=== PATIENT | male | born 1940 | race Caucasian/White ===

== ENCOUNTER 2019-01-27 17:03 | Emergency (ER) | payer MEDICARE ==
--- OUTSIDE RECORDS SUMMARY | 2019-01-27 17:18 | XMS REPORT | Continuity of Care Document ---
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 Dieudonne Still DO Primary Care Physician Unavailable Payers Date Identification Numbers Payment Provider Subscriber Policy Number: [id number] [employer] Jack Gonzalez PayID: [id number] [address] [address] [place] [address] Advance Directives Description No Information Available Problems Date Description Provider Status Onset: 07/13/2011 Atrial fibrillation Aaron Farnce MD, PhD Active Onset: 07/13/2011 Coronary arteriosclerosis Aaron France MD, PhD Active Onset: 07/13/2011 Hyperlipidemia Aaron France MD, PhD Active Onset: 07/13/2011 Benign essential hypertension Aaron France MD, PhD Active Onset: 06/28/2012 Localized, primary osteoarthritis Robbie Ibarra MD Active of the shoulder region Onset: 03/01/2014 Sleep dysfunction with sleep stage [place] High ANP Active disturbance Onset: 03/01/2014 Aortic valve disorder [place] ANP Active Onset: 12/04/2014 Localized, primary osteoarthritis Ifeanyi Lopez M.D. 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 Active replacement surgery Onset: 05/04/2017 Mixed hyperlipidemia Olimpia Muñoz, Active MSN, ACDS BLOCK 1 OPERATOR Onset: 10/30/2017 Periprosthetic fracture Deena Campbell PA Active Onset: 10/30/2017 Closed fracture of upper end of Deena Campbell PA Active tibia Onset: 10/30/2017 Other cause of strike by thrown, Deena Campbell PA Active projected or falling object, initial encounter Onset: 11/09/2017 Knee pain Ifeanyi Lopez M.D. Active Family History Date Family Member(s) Observation Comments General Heart Disease General Stroke Father due to Stroke () Mother due to Aneurysm () Mother due to Congestive Heart Failure () Social History Type Date Description Comments Sex Unknown Lives With Alone Diet Patient is on a low sodium diet Occupation [employer] Right-handed ADL's/IADL's Independent with all ADL's Tobacco Use Start: Unknown Never Smoked Cigarettes Tobacco Use Start: Unknown Never Smoked Cigars Tobacco Use Start: Unknown Never Smoked A Pipe Smoking Status Reviewed: 05/04/17 Never Smoked A Pipe Smokeless Tobacco Never Used Smokeless Tobacco ETOH Use Rarely consumes alcohol Recreational Drug Use Denies Drug Use Allergies, Adverse Reactions, Alerts Date Description Reaction Status Severity Comments Ramipril rash Active 01/18/2016 Ferrous Sulfate Active 01/18/2016 Ferrous Gluconate Active 06/28/2011 NKDA Inactive Medications Medication Date Status Form Strength Qnty SIG Indications Ordering Provider Simvastatin Active Tablets 80mg 90tab 1 by E78.4 Pollo, 7 s mouth MD Anshul every day at bedtime Aspirin Active Tablets 81mg 1 by Pollo, 6 mouth MD Anshul every day Losartan Active Tablets 25mg 90tab 1 by I10 Edilma, Potassium 3 s mouth Aaron Martinez, every MD, PhD day Metoprolol Active Tablets 25mg 180ta Take One Edilma, Tartrate 2 bs Tablet Aaron Martinez, By Mouth , PhD Twice A Day Sertraline HCL Active Tablets 25mg 60tab 1 by Unknown 0 s mouth every day Multi Vitamin 00/00/000 Active Tablets 1 po Unknown Daily 0 daily Spiriva Active Capsules 18mcg 1 puff Unknown Handihaler 0 once daily (pt uses irregula rly) Plavix Hx Tablets 75mg 90tab 1 by I25.10 Pollo, 5 - s mouth MD Anshul every 6 day Ranexa Hx Tablets ER 500mg 60tab 1 by 786.05 Pollo, 5 - 12HR s mouth MD Anshul Unknown twice a day Simvastatin Hx Tablets 40mg 90tab 1 po qd 272.4 Muñoz, 2 - s Olimpia Jorge 7 , MSN, ACDS BLOCK 1 OPERATOR Metoprolol Hx Tablets ER 25mg 90tab every France, Succinate ER 1 - 24HR s day Aaron Martinez, , PhD 2 Acetaminophen/H Hx Tablets 5-500mg 30tab 1 po q 6 786.59 Edilma ydrocodone 1 - s hours Aaron L., Unknown prn , PhD Amiodarone HCL Hx Tablets 200mg 90tab 1 po qd 427.31 Edilma 1 - s Aaron L., Unknown , PhD Pradaxa Hx Capsules 150mg 60cap 1 po bid 427.31 Edilma 1 - s Aaron L., Unknown , PhD Lasix Hx Tablets 20mg 60tab 1 tab po Edilma, 1 - s bid call Aaron L., Unknown with , PhD weight gain of 3 lbs Klor-Con M20 Hx Tablets ER 20Meq 30tab 1 po bid Edilma 1 - s Aaron L., Unknown , PhD Altace Hx Capsules 2.5mg 90cap 1 po qd Edilma 0 - s Aaron L., Unknown , PhD Amiodarone HCL Hx Tablets 400mg 180ta 1 po qd Unknown 0 - bs 1 Vitamin C Hx Tablets 500mg 1 po qd Unknown 0 - Unknown Aspirin DR Hx Tablets DR 81mg 1 po qd Unknown 0 - Unknown Docusate Sodium Hx Capsules 100mg 1 po qd Unknown 0 - Unknown Ferrous Hx Tablets 324(38Fe) 30tab 1 po qd Edilma Gluconate 0 - mg s Aaron L., Unknown , PhD Folic Acid Hx Tablets 1mg 90tab 1 po qd Unknown 0 - s Unknown Hydrocodone/Bertin Hx Tablets 5-325mg 60tab 1 tab po Unknown taminophen 0 - s q4-6h Unknown prn Lovastatin Hx Tablets 20mg 90tab 1 po qd 272.4 Edilma 0 - s Aaron LSoto, , PhD 2 Metoprolol Hx Tablets 25mg 60tab 1 po bid Unknown Tartrate 0 - s 1 Multivitamins Hx Tablets 1 po qd Unknown 0 - Unknown Pantoprazole Hx Tablets DR 40mg 1 po qd Unknown Sodium 0 - Unknown Fluoxetine Hx Capsules 20mg 1 po qd Unknown 0 - Unknown Vitamin C Hx Chewtabs 500mg qd Unknown 0 - Unknown Ramipril Hx Capsules 2.5mg 1 po qd Unknown 0 - Unknown Aspirin Hx Tablets 325mg 1 po qd Unknown 0 - 6 B-12 Hx Tablets 1000mcg po qd Unknown 0 - Sub Unknown Metoprolol Hx Tablets ER 25mg 1 po qd Unknown Succinate ER 0 - 24HR Unknown Centrum Silver Hx Tablets 1 po qd Unknown 0 - Unknown Tylenol Hx Tablets 325mg 2 tabs Unknown 0 - tid 5 Vitamin B 12 Hx Lozenges 300mg 1 by Unknown 0 - mouth every 6 day Spiriva Hx 1 p Unknown Handihaler 0 - daily Unknown Medications Administered in Office Medication Date Status Form Strength Qnty SIG Indications Ordering Provider Methylprednisolone 01/[address], acetate Tristian (Depomedrol) 80mg D., D.O. injection Depomedrol 07/23 Administered Injection [place], 40mg/1cc Cullen Villeda (methylprednisolon , FACS e acetate) Depomedrol 07/[address], 40mg/ Tristian (Bhaskar Saenz.OSoto wayne) Immunizations Description No Information Available Vital Signs Date Vital Result Comment 01/07/2019 2:48pm BP Systolic Sitting Left Arm 136 mmHg BP Diastolic Sitting Left Arm 62 mmHg Heart Rate 62 /min Respiratory Rate 18 /min Height 70 inches 5'10" Weight 195.00 lb BMI (Body Mass Index) 28.0 kg/m2 BSA (Body Surface Area) 2.06 m2 [place] body weight in kilograms 75 kg O2 % BldC Oximetry 97 % 06/22/2018 8:29am BP Systolic Sitting Left Arm 134 mmHg BP Diastolic Sitting Left Arm 76 mmHg Heart Rate 69 /min Respiratory Rate 16 /min Height 70 inches 5'10" Weight 190.00 lb BMI (Body Mass Index) 27.3 kg/m2 BSA (Body Surface Area) 2.04 m2 [place] body weight in kilograms 75 kg O2 % BldC Oximetry 97 % room air 12/21/2017 10:11am BP Systolic Sitting Left Arm 139 mmHg BP Diastolic Sitting Left Arm 81 mmHg Heart Rate 72 /min Respiratory Rate 20 /min Height 70 inches 5'10" Weight 196.50 lb BMI (Body Mass Index) 28.2 kg/m2 BSA (Body Surface Area) 2.07 m2 [place] body weight in kilograms 75 kg O2 % BldC Oximetry 96 % Ra Pain Level 0 12/14/2017 10:29am BP Systolic Sitting Right Arm 142 mmHg BP Diastolic Sitting Right Arm 72 mmHg Heart Rate 72 /min Respiratory Rate 16 /min Height 70 inches 5'10" Weight 197.00 lb BMI (Body Mass Index) 28.3 kg/m2 BSA (Body Surface Area) 2.07 m2 [place] body weight in kilograms 75 kg 12/07/2017 10:35am BP Systolic Sitting Left Arm 134 mmHg BP Diastolic Sitting Left Arm 80 mmHg Body Temperature 97.4 F Heart Rate 67 /min Respiratory Rate 19 /min Height 70 inches 5'10" Weight 198.00 lb BMI (Body Mass Index) 28.4 kg/m2 BSA (Body Surface Area) 2.08 m2 [place] body weight in kilograms 75 kg 11/07/2017 3:18pm BP Systolic 122 mmHg BP Diastolic 68 mmHg Body Temperature 98.0 F Heart Rate 77 /min Respiratory Rate 14 /min Height 70 inches 5'10" Weight 183.00 lb BMI (Body Mass Index) 26.3 kg/m2 BSA (Body Surface Area) 2.01 m2 [place] body weight in kilograms 75 kg 10/30/2017 11:35am BP Systolic Sitting Right Arm 130 mmHg BP Diastolic Sitting Right Arm 71 mmHg Body Temperature 98.4 F Heart Rate 78 /min Respiratory Rate 20 /min Height 70 inches 5'10" [place] body weight in kilograms 75 kg 05/04/2017 8:40am BP Systolic Sitting Left Arm 130 mmHg BP Diastolic Sitting Left Arm 76 mmHg Heart Rate 62 /min Respiratory Rate 18 /min Height 70 inches 5'10" Weight 191.00 lb BMI (Body Mass Index) 27.4 kg/m2 BSA (Body Surface Area) 2.05 m2 [place] body weight in kilograms 75 kg 10/25/2016 3:38pm BP Systolic Sitting Right Arm 134 mmHg BP Diastolic Sitting Right Arm 88 mmHg Heart Rate 71 /min Respiratory Rate 16 /min Weight 196.00 lb 07/19/2016 8:38am BP Systolic Sitting Left Arm 144 mmHg BP Diastolic Sitting Left Arm 80 mmHg Heart Rate 69 /min Height 67 inches 5'7" Weight 195.00 lb BMI (Body Mass Index) 30.5 kg/m2 BSA (Body Surface Area) 2.00 m2 [place] body weight in kilograms 67 kg 11/03/2015 9:27am BP Systolic 132 mmHg BP Diastolic 79 mmHg Heart Rate 72 /min Height 70 inches 5'10" Weight 191.00 lb BMI (Body Mass Index) 27.4 kg/m2 BSA (Body Surface Area) 2.05 m2 O2 % BldC Oximetry 98 % 10/20/2015 9:56am BP Systolic Sitting Left Arm 138 mmHg BP Diastolic Sitting Left Arm 74 mmHg Heart Rate 72 /min Height 70 inches 5'10" Weight 192.00 lb BMI (Body Mass Index) 27.5 kg/m2 BSA (Body Surface Area) 2.05 m2 07/27/2015 8:50am BP Systolic 119 mmHg BP Diastolic 71 mmHg Heart Rate 60 /min Weight 190.00 lb O2 % BldC Oximetry 98 % 04/15/2015 2:37pm BP Systolic Sitting Right Arm 130 mmHg BP Diastolic Sitting Right Arm 68 mmHg Heart Rate 60 /min Respiratory Rate 16 /min Height 68.5 inches 5'8.50" Weight 193.00 lb BMI (Body Mass Index) 28.9 kg/m2 BSA (Body Surface Area) 2.02 m2 01/13/2015 11:10am BP Systolic Sitting Right Arm 122 mmHg BP Diastolic Sitting Right Arm 66 mmHg Heart Rate 58 /min Respiratory Rate 22 /min Height 68.5 inches 5'8.50" Weight 193.00 lb BMI (Body Mass Index) 28.9 kg/m2 BSA (Body Surface Area) 2.02 m2 12/19/2014 11:15am Heart Rate 68 /min Respiratory Rate 16 /min Height 68.5 inches 5'8.50" Weight 190.00 lb BMI (Body Mass Index) 28.5 kg/m2 BSA (Body Surface Area) 2.01 m2 12/01/2014 11:20am BP Systolic Sitting Right Arm 120 mmHg BP Diastolic Sitting Right Arm 76 mmHg Heart Rate 60 /min Respiratory Rate 16 /min Height 68.5 inches 5'8.50" Weight 192.00 lb BMI (Body Mass Index) 28.8 kg/m2 BSA (Body Surface Area) 2.02 m2 09/11/2014 9:20am BP Systolic Sitting Right Arm 120 mmHg BP Diastolic Sitting Right Arm 62 mmHg Heart Rate 60 /min Respiratory Rate 18 /min Height 68.5 inches 5'8.50" Weight 189.00 lb BMI (Body Mass Index) 28.3 kg/m2 BSA (Body Surface Area) 2.01 m2 02/27/2014 10:46am BP Systolic Sitting Left Arm 112 mmHg BP Diastolic Sitting Left Arm 64 mmHg Heart Rate 66 /min Respiratory Rate 16 /min Height 68.5 inches 5'8.50" Weight 181.00 lb BMI (Body Mass Index) 27.1 kg/m2 BSA (Body Surface Area) 1.97 m2 08/26/2013 9:51am BP Systolic Sitting Left Arm 136 mmHg BP Diastolic Sitting Left Arm 72 mmHg Heart Rate 72 /min Respiratory Rate 16 /min Height 68.5 inches 5'8.50" Weight 185.00 lb BMI (Body Mass Index) 27.7 kg/m2 BSA (Body Surface Area) 1.99 m2 07/23/2013 11:34am Height 68.5 inches 5'8.50" Weight 186.00 lb BMI (Body Mass Index) 27.9 kg/m2 BSA (Body Surface Area) 1.99 m2 06/27/2013 9:17am BP Systolic Sitting Left Arm 134 mmHg BP Diastolic Sitting Left Arm 68 mmHg Heart Rate 56 /min Respiratory Rate 16 /min Height 189 inches 15'9" Weight 188.00 lb BMI (Body Mass Index) 3.7 kg/m2 BSA (Body Surface Area) 4.18 m2 05/23/2013 9:56am BP Systolic Sitting Right Arm 146 mmHg BP Diastolic Sitting Right Arm 82 mmHg Heart Rate 54 /min Respiratory Rate 16 /min Height 189 inches 15'9" Weight 190.00 lb BMI (Body Mass Index) 3.7 kg/m2 BSA (Body Surface Area) 4.20 m2 11/22/2012 1:13pm BP Systolic Sitting Left Arm 124 mmHg BP Diastolic Sitting Left Arm 70 mmHg Heart Rate 66 /min Respiratory Rate 16 /min Height 189 inches 15'9" Weight 189.00 lb BMI (Body Mass Index) 3.7 kg/m2 BSA (Body Surface Area) 4.19 m2 05/22/2012 11:21am BP Systolic Sitting Right Arm 120 mmHg BP Diastolic Sitting Right Arm 72 mmHg Heart Rate 56 /min Regular Respiratory Rate 12 /min Height 70 inches 5'10" Weight 183.00 lb BMI (Body Mass Index) 26.3 kg/m2 03/22/2012 1:25pm BP Systolic Sitting Right Arm 134 mmHg BP Diastolic Sitting Right Arm 90 mmHg Heart Rate 68 /min regular Respiratory Rate 16 /min Height 70 inches 5'10" Weight 180.00 lb BMI (Body Mass Index) 25.8 kg/m2 01/20/2012 3:27pm BP Systolic Sitting Left Arm 126 mmHg BP Diastolic Sitting Left Arm 82 mmHg Heart Rate 64 /min Regular Respiratory Rate 16 /min Height 70 inches 5'10" Weight 183.00 lb BMI (Body Mass Index) 26.3 kg/m2 11/17/2011 3:13pm BP Systolic Sitting Right Arm 134 mmHg BP Diastolic Sitting Right Arm 82 mmHg Heart Rate 72 /min regular Respiratory Rate 16 /min Height 70 inches 5'10" Weight 190.00 lb BMI (Body Mass Index) 27.3 kg/m2 10/13/2011 10:29am BP Systolic Sitting Right Arm 142 mmHg BP Diastolic Sitting Right Arm 86 mmHg Heart Rate 76 /min Regular Respiratory Rate 18 /min Height 70 inches 5'10" Weight 195.00 lb BMI (Body Mass Index) 28.0 kg/m2 07/13/2011 10:05am BP Systolic Sitting Right Arm 100 mmHg BP Diastolic Sitting Right Arm 66 mmHg Heart Rate 68 /min regular Respiratory Rate 20 /min Height 70 inches 5'10" Weight 184.00 lb BMI (Body Mass Index) 26.4 kg/m2 06/28/2011 2:56pm BP Systolic Sitting Right Arm 126 mmHg BP Diastolic Sitting Right Arm 74 mmHg BP Systolic Sitting Left Arm 124 mmHg BP Diastolic Sitting Left Arm 70 mmHg Heart Rate 68 /min Respiratory Rate 18 /min Height 70 inches 5'10" Weight 183.00 lb BMI (Body Mass Index) 26.3 kg/m2 Results Test Date Facility Test Result H/L Range Note Laboratory test finding 08/01/2018 N2N/CCD Import Alt 19 U/L 3-42 Ast 21 U/L 8-42 Chol/ HDL Ratio 3.3 ratio Low 4-6.7 Cholesterol 149 mg/dL 50-199 HDL 45 mg/dL 29-71 LDL (Calc) 89 mg/dL 20-99 TSH 2.38 uIU/mL 0.35-4.94 Triglycerides 78 mg/dL 30-200 VLDL 16 mg/dL 2-29 Basic (BMP) 08/01/2018 N2N/CCD Import Nikki Egfr >60 Anion Gap 8 mmol/L 5-15 BUN 18 mg/dL 6-26 Calcium 9.2 mg/dL 8.5-10.2 Carbon Dioxide 28 mmol/L 24-34 Chloride# 105 mmol/L 97-110 Creatinine 1.0 mg/dL 0.5-1.4 Glucose 102 mg/dL 70-105 Non Nikki Egfr >60 Potassium 4.4 mmol/L 3.5-5.2 Sodium 141 mmol/L 135-146 CBC with Auto Diff-fcmg 08/01/2018 N2N/CCD Import Abs Basophils 0.0 K/uL 0-0.3 Abs Eosinophils 0.5 K/uL 0-0.5 Abs Lymphocytes 2.1 K/uL 0.8-5.5 Abs Monocytes 0.6 K/uL 0.1-1 Abs Neutrophils 3.3 K/uL 2.1-8 Basophil 0.6 % 0-4 Eosinophil 7.7 % High 0-5 Hematocrit 46.6 % 41-53 Hemoglobin 15.8 gm/dL 13.5-18 Lymphocyte 32.2 % 16-52 MCH 31.8 pg 27-32 MCHC 33.9 g/dL 32-36 MCV 93.8 fL 80-97 MPV 8.8 FL 7.1-10.7 Monocyte 9.5 % 2-10 Neutrophil 50.0 % 35-75 PLT Count 242 K/ul 140-400 RBC 4.97 M/uL 4.6-6.1 RDW 13.6 % 11.5-14.5 WBC 6.7 K/uL 4.1-11 Liver Function Tests 12/08/2016 [facility] Total Protein 6.8 g/dL N 6.4-8.2 1 [address] [place] [address] [phone] Albumin 3.5 g/dL N 3.4-5.0 Globulin 3.3 g/dL N 1.9-4.3 Alb/Glob 1.1 ratio Bilirubin,Total 0.7 mg/dL N 0.2-1.0 Bilirubin,Direct 0.1 mg/dL N 0.0-0.2 Bilirubin,Indirect 0.6 mg/dL N 0.0-0.9 Sgot/Ast 24 U/L N 15-37 SGPT/Alt 31 U/L N 12-78 Alkaline Phosphatase 83 U/L N 45-117 LDL Cholesterol Profile 12/08/2016 [facility] Cholesterol 152 mg/dL <200 2 [address] [place] [address] [phone] Triglycerides 89 mg/dL <150 3 HDL Cholesterol 47 mg/dL >40 4 LDL-Cholesterol 87 mg/dL < 100 5 Basic Metabolic Panel 11/26/2015 [facility] Glucose 128 mg/dL High 74-106 [address] [place] [address] [phone] BUN 9 mg/dL 7-18 Creatinine 0.9 mg/dL 0.6-1.3 Glom Filtration Rate, Estimate >60 mL/min >60 If >60 mL/min >60 6 BUN/Creat 10.0 ratio Sodium 139 mmol/L 136-145 Potassium 3.9 mmol/L 3.5-5.1 Chloride 104 mmol/L 98-107 Carbon Dioxide 23 mmol/L 21-32 Anion Gap 12 mEq/L 8-16 Calcium 8.0 mg/dL Low 8.5-10.1 CBC W/Automated 11/26/2015 [facility] White Blood 13.5 K/uL High 3.4-10.5 Diff [address] [place] [address] [phone] Red Blood Count 4.66 M/uL 4.20-5.80 Hemoglobin 14.2 gm/dL 12.8-17.0 Hematocrit 42.8 % 38.0-48.0 Mean Cell Volume 91.8 fl 80.0-96.0 Mean Corpuscular HGB 30.5 pg 27.0-33.0 Mean Corpuscular HGB Conc 33.2 g/dL 31.7-36.0 Platelet Count 222 K/uL 150-400 Red Cell Distri Width SD 46.2 fl 36-51 Red Cell Distri Width %CV 14.1 % 11.6-15.8 Mean Platelet Volume 10.1 fL 6.6-10.6 Neut% 74.8 % High 33.0-73.0 Lymph % 11.6 % Low 17.0-56.0 [place] % 9.8 % 0.0-10.0 Eo% 3.7 % 0.0-5.0 Bas% 0.1 % 0.1-1.0 Neut# 10.08 K/uL High 1.8-7.0 Lymph # 1.57 K/uL Low 1.8-7.0 [place] # 1.32 K/uL High 0.0-0.8 Eos # 0.50 K/uL 0.0-0.5 Baso # 0.02 K/uL Low 0.1-0.2 Hemoglobin/Hematocrit 11/26/2015 [facility] Hemoglobin 14.2 12.8-17.[address] gm/[place] [address] [phone] Hematocrit 42.8 % 38.0-48.0 Hemoglobin/Hematocrit 11/25/2015 [facility] Hemoglobin 13.6 12.8-17.[address] gm/[place] [address] [phone] Hematocrit 42.0 % 38.0-48.0 Basic Metabolic Panel 11/24/2015 [facility] Glucose 86 mg/dL 74-[address] [place] [address] [phone] BUN 13 mg/dL 7-18 Creatinine 1.0 mg/dL 0.6-1.3 Glom Filtration Rate, Estimate >60 mL/min >60 If >60 mL/min >60 7 BUN/Creat 13.0 ratio Sodium 142 mmol/L 136-145 Potassium 4.0 mmol/L 3.5-5.1 Chloride 108 mmol/L High 98-107 Carbon Dioxide 28 mmol/L 21-32 Anion Gap 6 mEq/L Low 8-16 Calcium 8.2 mg/dL Low 8.5-10.1 Laboratory test 11/24/2015 [facility] Knee Replacement See Note 8 finding [address] [place] [id number] [phone] CBC 11/19/2015 [facility] CBC See Note 9 [address] [place] [address] [phone] Urine Screen 11/19/2015 [facility] Urine Color YELLOW Yellow [address] [place] [address] [phone] Urine Clarity CLEAR Clear Urine Glucose - Dipstick NEGATIVE mg/dL Negative Urine Bilirubin - Dipstick NEGATIVE Negative Urine Ketone NEGATIVE mg/dL Negative Urine Specific [place] 1.020 1.010-1.030 Urine Blood NEGATIVE Negative Urine PH 6.0 Low 6.5-7.5 Urine Protein - Dipstick NEGATIVE mg/dL Negative Urine Urobilinogen - Dipstick 0.2 E.U./dL 0.2-1.0 Urine Nitrite - Dipstick NEGATIVE Negative Urine Leuk Esterase NEGATIVE Negative Type And Screen 11/19/2015 [facility] Patient Blood Type A POS [address] [place] [address] [phone] Antibody Screen Negative Negative Basic Metabolic 11/19/2015 [facility] Basic Metabolic See Note 10 Panel [address] [place] [address] [phone] MRSA Screen 11/03/2015 [facility] MRSA Screen See Note 11 [address] [place] [address] [phone] Basic Metabolic 08/14/2015 [facility] Glucose 105 mg/dL 74-106 Panel [address] [place] [address] [phone] BUN 12 mg/dL 7-18 Creatinine 0.8 mg/dL 0.6-1.3 Glom Filtration Rate, Estimate >60 mL/min >60 If >60 mL/min >60 12 BUN/Creat 15.0 ratio Sodium 134 mmol/L Low 136-145 Potassium 4.4 mmol/L 3.5-5.1 Chloride 104 mmol/L 98-107 Carbon Dioxide 27 mmol/L 21-32 Anion Gap 3 mEq/L Low 8-16 Calcium 8.5 mg/dL 8.5-10.1 Laboratory test 08/14/2015 [facility] C-Reactive 166.0 High <3.[address] Protein,Quant mg/[place] [address] [phone] CBC W/Automated 08/14/2015 [facility] White Blood Count 12.6 K/uL High 3.4- 10.5 Diff [address] [place] [address] [phone] Red Blood Count 4.13 M/uL Low 4.20-5.80 Hemoglobin 13.2 gm/dL 12.8-17.0 Hematocrit 39.3 % 38.0-48.0 Mean Cell Volume 95.2 fl 80.0-96.0 Mean Corpuscular HGB 32.0 pg 27.0-33.0 Mean Corpuscular HGB Conc 33.6 g/dL 31.7-36.0 Platelet Count 228 K/uL 150-400 Red Cell Distri Width SD 44.8 fl 36-51 Red Cell Distri Width %CV 13.3 % 11.6-15.8 Mean Platelet Volume 10.4 fL 6.6-10.6 Neut% 72.1 % 33.0-73.0 Lymph % 15.7 % Low 17.0-56.0 [place] % 10.4 % High 0.0-10.0 Eo% 1.6 % 0.0-5.0 Bas% 0.2 % 0.1-1.0 Neut# 9.12 K/uL High 1.8-7.0 Lymph # 1.98 K/uL 1.8-7.0 [place] # 1.31 K/uL High 0.0-0.8 Eos # 0.20 K/uL 0.0-0.5 Baso # 0.02 K/uL Low 0.1-0.2 Laboratory test 08/14/2015 [facility] Hemoglobin/Hematocrit See Note 13 finding [address] [place] [address] [phone] Hemoglobin/[place] 08/13/2015 [facility] Hemoglobin 12.7 Low 12.[address] gm/dL -[address]. [place] [address] [phone] Hematocrit 38.1 % 38.0-48.0 CBC W/Automated 08/13/2015 [facility] White Blood 15.1 K/uL High 3.4-10.[address] Count [place], [place] [id number] [phone] Red Blood Count 3.96 M/uL Low 4.20-5.80 Hemoglobin 12.7 gm/dL Low 12.8-17.0 Hematocrit 38.1 % 38.0-48.0 Mean Cell Volume 96.2 fl High 80.0-96.0 Mean Corpuscular HGB 32.1 pg 27.0-33.0 Mean Corpuscular HGB Conc 33.3 g/dL 31.7-36.0 Platelet Count 215 K/uL 150-400 Red Cell Distri Width SD 46.1 fl 36-51 Red Cell Distri Width %CV 13.4 % 11.6-15.8 Mean Platelet Volume 10.4 fL 6.6-10.6 Neut% 81.0 % High 33.0-73.0 Lymph % 8.9 % Low 17.0-56.0 [place] % 9.5 % 0.0-10.0 Eo% 0.5 % 0.0-5.0 Bas% 0.1 % 0.1-1.0 Neut# 12.22 K/uL High 1.8-7.0 Lymph # 1.35 K/uL Low 1.8-7.0 [place] # 1.44 K/uL High 0.0-0.8 Eos # 0.08 K/uL 0.0-0.5 Baso # 0.02 K/uL Low 0.1-0.2 Basic Metabolic Panel 08/13/2015 [facility] Glucose 135 mg/dL High 74-[address] [place], [place] [id number] [phone] BUN 12 mg/dL 7-18 Creatinine 0.9 mg/dL 0.6-1.3 Glom Filtration Rate, Estimate >60 mL/min >60 If >60 mL/min >60 14 BUN/Creat 13.3 ratio Sodium 135 mmol/L Low 136-145 Potassium 4.0 mmol/L 3.5-5.1 Chloride 100 mmol/L 98-107 Carbon Dioxide 27 mmol/L 21-32 Anion Gap 8 mEq/L 8-16 Calcium 8.2 mg/dL Low 8.5-10.1 Laboratory test 08/13/2015 [facility] Ua RFX Micro + See Note [address] [place] [address] [phone] Urinalysis With 08/13/2015 [facility] Urine Color YELLOW Yellow Microscopic [address] [place] [address] [phone] Urine Clarity CLEAR Clear Urine Glucose - Dipstick 250 mg/dL High Negative Urine Bilirubin - Dipstick NEGATIVE Negative Urine Ketone NEGATIVE mg/dL Negative Urine Specific [place] <=1.005 Low 1.010-1.030 Urine Blood SMALL High Negative Urine PH 7.0 6.5-7.5 Urine Protein - Dipstick NEGATIVE mg/dL Negative Urine Urobilinogen - Dipstick 0.2 E.U./dL 0.2-1.0 Urine Nitrite - Dipstick NEGATIVE Negative Urine Leuk Esterase NEGATIVE Negative Urine RBC 0-2 rbc/hpf 0-2 Urine WBC 0-2 wbc/hpf 0-7 Urine Epithelial Cells VERY FEW NONESEEN/lpf Hemoglobin/Hematocrit 08/12/2015 [facility] Hemoglobin 12.7 Low 12.8-17.0 [address] gm/[place] [address] [phone] Hematocrit 38.6 % 38.0-48.0 Laboratory test 08/11/2015 [facility] Knee Replacement See Note [address] [place] [address] [phone] Basic Metabolic 08/11/2015 [facility] Glucose 157 mg/dL High 74-[address] [place] [address] [phone] BUN 20 mg/dL High 7-18 Creatinine 1.0 mg/dL 0.6-1.3 Glom Filtration Rate, Estimate >60 mL/min >60 If >60 mL/min >60 17 BUN/Creat 20.0 ratio Sodium 140 mmol/L 136-145 Potassium 3.8 mmol/L 3.5-5.1 Chloride 108 mmol/L High 98-107 Carbon Dioxide 23 mmol/L 21-32 Anion Gap 9 mEq/L 8-16 Calcium 8.6 mg/dL 8.5-10.1 Type And Screen 08/11/2015 [facility] Patient Blood Type A POS [address] [place] [address] [phone] Antibody Screen Negative Negative Protime 08/05/2015 [facility] Protime 14.1 seconds 12.0-14.4 [address] [place] [address] [phone] Inr 1.1 0.9-1.1 18 Laboratory test 07/27/2015 [facility] MRSA Screen See Note 19 finding [address] [place] [address] [phone] LDL Cholesterol 12/22/2014 [facility] Cholesterol 157 mg/dL < 200 20 Profile [address] [place] [address] [phone] Triglycerides 81 mg/dL < 150 21 HDL Cholesterol 47 mg/dL > 40 22 LDL-Cholesterol 94 mg/dL < 100 23 Liver Function Tests 12/22/2014 [facility] Total Protein 6.6 g/dL 6.4-8.2 [address] [place] [address] [phone] Albumin 3.4 g/dL 3.4-5.0 Globulin 3.2 g/dL 1.9-4.3 Alb/Glob 1.1 ratio Bilirubin,Total 0.5 mg/dL 0.2-1.0 Bilirubin,Direct 0.1 mg/dL 0.0-0.2 Bilirubin,Indirect 0.4 mg/dL 0.0-0.9 Sgot/Ast 20 U/L 15-37 SGPT/Alt 25 U/L 12-78 Alkaline Phosphatase 73 U/L 45-117 Protime 12/22/2014 [facility] Protime 14.2 seconds 12.1-14.9 [address] [place] [address] [phone] Inr 1.1 0.9-1.1 24 Laboratory test 12/22/2014 [facility] Act Partial 30.5 seconds 23.9-34.3 25 finding [address] [place] [address] [phone] Basic Metabolic 12/22/2014 [facility] Glucose 104 mg/dL 74-106 Panel 134 [facility], [place] [id number] [phone] BUN 19 mg/dL High 7-18 Creatinine 1.0 mg/dL 0.6-1.3 Glom Filtration Rate, Estimate >60 mL/min >60 If >60 mL/min >60 26 BUN/Creat 19.0 ratio Sodium 141 mmol/L 136-145 Potassium 4.0 mmol/L 3.5-5.1 Chloride 109 mmol/L High 98-107 Carbon Dioxide 26 mmol/L 21-32 Anion Gap 6 mEq/L Low 8-16 Calcium 8.8 mg/dL 8.5-10.1 CBC W/Automated Diff 12/22/2014 [facility] White Blood 7.5 K/uL 3.4-10.[address] [place] [address] [phone] Red Blood Count 5.31 M/uL 4.20-5.80 Hemoglobin 16.5 gm/dL 12.8-17.0 Hematocrit 48.9 % High 38.0-48.0 Mean Cell Volume 92.1 fl 80.0-96.0 Mean Corpuscular HGB 31.1 pg 27.0-33.0 Mean Corpuscular HGB Conc 33.7 g/dL 31.7-36.0 Platelet Count 229 K/uL 150-400 Red Cell Distri Width SD 44.2 fl 36-51 Red Cell Distri Width %CV 13.3 % 11.6-15.8 Mean Platelet Volume 10.3 fL 6.6-10.6 Neut% 66.4 % 33.0-73.0 Lymph % 22.8 % 17.0-56.0 Hidalgo % 6.9 % 0.0-10.0 Eo% 3.6 % 0.0-5.0 Bas% 0.3 % 0.1-1.0 Neut# 4.98 K/uL 1.8-7.0 Lymph # 1.71 K/uL Low 1.8-7.0 Hidalgo # 0.52 K/uL 0.0-0.8 Eos # 0.27 K/uL 0.0-0.5 Baso # 0.02 K/uL Low 0.1-0.2 LDL Cholesterol 07/03/2013 [facility] Cholesterol 148 mg/dL 120-[address] [place] [address] [phone] Triglycerides 129 mg/dL 16-231 HDL Cholesterol 36 mg/dL 29-83 LDL-Cholesterol 86 mg/dL 62-185 Liver Function Tests 07/03/2013 [facility] Total Protein 6.6 g/dL 6.3-8.0 [address] [place] [address] [phone] Albumin 3.5 g/dL 3.5-5.0 Globulin 3.1 g/dL 1.9-4.3 Alb/Glob 1.1 ratio Bilirubin,Total 0.6 mg/dL 0.2-1.2 Bilirubin,Direct 0.1 mg/dL 0.1-0.4 Bilirubin,Indirect 0.5 mg/dL 0.0-0.9 Sgot/Ast 22 U/L 16-40 SGPT/Alt 39 U/L 30-65 Alkaline Phosphatase 66 U/L 50-136 Basic Metabolic Panel 07/03/2013 [facility] Glucose 93 mg/dL 76-115 [address] [place] [address] [phone] BUN 23 mg/dL 5-23 Creatinine 1.0 mg/dL 0.5-1.4 Glom Filtration Rate, Estimate >60 mL/min >60 If >60 mL/min >60 27 BUN/Creat 23.0 ratio Sodium 141 mmol/L 136-145 Potassium 4.3 mmol/L 3.5-5.1 Chloride 107 mmol/L 98-107 Carbon Dioxide 26 mEq/L 18-29 Anion Gap 12 mEq/L 8-16 Calcium 8.5 mg/dL 8.5-10.1 Laboratory test 03/23/2012 [facility] CK-MB (Mass) 2.3 ng/ml 0.5-8.2 finding [address] [place] [address] [phone] Liver Function 03/23/2012 [facility] Total Protein 6.8 g/dL 6.3-8.0 Tests [address] [place] [address] [phone] Albumin 3.6 g/dL 3.5-5.0 Globulin 3.2 g/dL 1.9-4.3 Alb/Glob 1.1 ratio Bilirubin,Total 0.5 mg/dL 0.2-1.2 Bilirubin,Direct 0.1 mg/dL 0.1-0.4 Bilirubin,Indirect 0.4 mg/dL 0.0-0.9 Sgot/Ast 23 U/L 16-40 SGPT/Alt 27 U/L Low 30-65 Alkaline Phosphatase 61 U/L 50-136 CK Isoenzymes,Serum 03/23/2012 [facility] CK,Total 110 U/L 24-204 [address] [place] [address] [phone] Macro II 0 NotObserved% CK-mm 95 % Low 97-100 Macro I 0 NotObserved% CK-MB 0 % 0-3 CK-BB 5 % High 0 28 LDL Cholesterol 03/23/2012 [facility] Cholesterol 153 mg/dL 120-200 Profile [address] [place] [address] [phone] Triglycerides 75 mg/dL 16-231 HDL Cholesterol 46 mg/dL 29-83 LDL-Cholesterol 92 mg/dL 62-185 LDL Cholesterol 01/16/2012 [facility] Cholesterol 181 mg/dL 120-200 Profile [address] [place] [address] [phone] Triglycerides 104 mg/dL 16-231 HDL Cholesterol 47 mg/dL 29-83 LDL-Cholesterol 113 mg/dL 62-185 Liver Function Tests 01/16/2012 [facility] Total Protein 6.8 g/dL 6.3-8.0 [address] [place] [address] [phone] Albumin 3.8 g/dL 3.5-5.0 Globulin 3.0 g/dL 1.9-4.3 Alb/Glob 1.3 ratio Bilirubin,Total 0.7 mg/dL 0.2-1.2 Bilirubin,Direct 0.1 mg/dL 0.1-0.4 Bilirubin,Indirect 0.6 mg/dL 0.0-0.9 Sgot/Ast 25 U/L 16-40 SGPT/Alt 30 U/L 30-65 Alkaline Phosphatase 57 U/L 50-136 Amiodarone 07/13/2011 [facility] Amiodarone,Serum 0.7 Low 1.0-2.5 29 (Cordarone), [address] ug/[place] [address] [phone] Noramiodarone,Serum 0.7 ug/mL Low 1.0-2.5 30 1 E78.2 2 Reference Guidelines*: Desirable: ........... < 200 mg/dL Borderline High: ..... 200-239 mg/dL High: ................ >=240 mg/dL * The National Cholesterol Education Program (NCEP) 3 Reference Guidelines*: Normal: ............. < 150 mg/dL Borderline High: .... 150-199 mg/dL High: ............... 200-499 mg/dL Very High: .......... > 500 mg/dL * Source: National Cholesterol Education Program (NCEP) 4 Reference Guidelines*: Low HDL: ..... < 40 mg/dL Normal: ..... 40-60 mg/dL Desirable: ... > 60 mg/dL *The National Cholesterol Education Program(NCEP) 5 Reference Guidelines*: Optimal:........... <100 mg/dL Near Optimal....... 100-129 mg/dL Borderline High.... 130-159 mg/dL High............... 160-189 mg/dL Very High.......... >=190 mg/dL * Source: National Cholesterol Education Program (NCEP) 6 Note: Persistent reduction for 3 months or more in an eGFR <60 mL/min/1.73 m2 defines CKD. Patients with eGFR values >/=60 mL/min/1.73 m2 may also have CKD if evidence of persistent proteinuria is present. The original MDRD equation for estimated GFR is not valid for patients less than 18 years of age. Additional information may be found at www.kdoqi.org. 7 Note: Persistent reduction for 3 months or more in an eGFR <60 mL/min/1.73 m2 defines CKD. Patients with eGFR values >/=60 mL/min/1.73 m2 may also have CKD if evidence of persistent proteinuria is present. The original MDRD equation for estimated GFR is not valid for patients less than 18 years of age. Additional information may be found at www.[email or web address]. 8 OPERATION/PROCEDURE Right total knee replacement. DIAGNOSIS: "KNEE, RIGHT, ARTHROPLASTY": - SEVERE DEGENERATIVE OSTEOARTHRITIC CHANGES. /[facility] 1109 GROSS Received in formalin in an appropriately labeled container with the patient' s name and accession number designated, "PORTION OF RIGHT KNEE". The specimen consists of multiple pieces of naylor-white, firm avelino tissue with an aggregate measurement of 11.3 x 10.4 x 4.5 cm. The surface is naylor-white and smooth. Group Leader [employer] sections, one cassette following decalcification. /clf PRE OPERATIVE DIAGNOSIS Right knee osteoarthritis. REVIEW CODE CODE: I Signed Electronically signed PERCY BROWNE MD 1139 9 Cancelled via OE: Duplicate order 10 Cancelled via OE: Duplicate order 11 NO METHICILLIN RESISTANT STAPHYLOCOCCUS AUREUS ISOLATED. 12 Note: Persistent reduction for 3 months or more in an eGFR <60 mL/min/1.73 m2 defines CKD. Patients with eGFR values >/=60 mL/min/1.73 m2 may also have CKD if evidence of persistent proteinuria is present. The original MDRD equation for estimated GFR is not valid for patients less than 18 years of age. Additional information may be found at [email or web address]. 13 08/14/15 LAB.EMM1 ADELA ORDER 14 Note: Persistent reduction for 3 months or more in an eGFR <60 mL/min/1.73 m2 defines CKD. Patients with eGFR values >/=60 mL/min/1.73 m2 may also have CKD if evidence of persistent proteinuria is present. The original MDRD equation for estimated GFR is not valid for patients less than 18 years of age. Additional information may be found at [email or web address]. 15 08/13/15 DIEGO.DANIELLE Deleted by [employer] [facility] 16 OPERATION/PROCEDURE Left total knee arthroplasty DIAGNOSIS: "KNEE, LEFT, ARTHROPLASTY": - SEVERE DEGENERATIVE ARTHRITIS CHANGES. /[facility] 1116 GROSS Received in formalin in a properly labeled container with the patient's name and accession number. The specimen is designated "PORTION LEFT KNEE" and consists of several pieces of bone fragment material, the largest measuring 9.0 x 6.5 x 2.8 cm, the smallest 1.2 x 0.8 x 0.6 cm. A piece was cut off and submitted following decalcification. /glenn PRE OPERATIVE DIAGNOSIS Left knee osteoarthritis REVIEW CODE CODE: I Signed Electronically signed PERCY BROWNE MD 1131 17 Note: Persistent reduction for 3 months or more in an eGFR <60 mL/min/1.73 m2 defines CKD. Patients with eGFR values >/=60 mL/min/1.73 m2 may also have CKD if evidence of persistent proteinuria is present. The original MDRD equation for estimated GFR is not valid for patients less than 18 years of age. Additional information may be found at [email or web address]. 18 THERAPEUTIC INR RANGE: 2.0 - 3.0 DVT, Pulmonary embolus, prophylaxis against venous thrombosis or systemic embolization in high risk patients. 2.5 - 3.5 Mechanical heart valves 19 NO METHICILLIN RESISTANT STAPHYLOCOCCUS AUREUS ISOLATED. 20 Reference Guidelines*: Desirable: ........... < 200 mg/dL Borderline High: ..... 200-239 mg/dL High: ................ >=240 mg/dL * The National Cholesterol Education Program (NCEP) 21 Reference Guidelines*: Normal: ............. < 150 mg/dL Borderline High: .... 150-199 mg/dL High: ............... 200-499 mg/dL Very High: .......... > 500 mg/dL * Source: National Cholesterol Education Program (NCEP) 22 Reference Guidelines*: Low HDL: ..... < 40 mg/dL Normal: ..... 40-60 mg/dL Desirable: ... > 60 mg/dL *The National Cholesterol Education Program(NCEP) 23 Reference Guidelines*: Optimal:........... <100 mg/dL Near Optimal....... 100-129 mg/dL Borderline High.... 130-159 mg/dL High............... 160-189 mg/dL Very High.......... >=190 mg/dL * Source: National Cholesterol Education Program (NCEP) 24 THERAPEUTIC INR RANGE: 2.0 - 3.0 DVT, Pulmonary embolus, prophylaxis against venous thrombosis or systemic embolization in high risk patients. 2.5 - 3.5 Mechanical heart valves 25 QUERY: Anticoagulant Therapy? N QUERY: Date of Last Dose: QUERY: Time of Last Dose: 26 Note: Persistent reduction for 3 months or more in an eGFR <60 mL/min/1.73 m2 defines CKD. Patients with eGFR values >/=60 mL/min/1.73 m2 may also have CKD if evidence of persistent proteinuria is present. The original MDRD equation for estimated GFR is not valid for patients less than 18 years of age. Additional information may be found at www.[email or web address]. 27 Note: Persistent reduction for 3 months or more in an eGFR <60 mL/min/1.73 m2 defines CKD. Patients with eGFR values >/=60 mL/min/1.73 m2 may also have CKD if evidence of persistent proteinuria is present. The original MDRD equation for estimated GFR is not valid for patients less than 18 years of age. Additional information may be found at [email or web address]. 28 Performed at: - [facility] [address] [id number] Policy Writer Typist: Armani Rowland MD, Phone: [phone] Detection Limit=0.2 30 Detection Limit=0.2 Performed at: - [facility] [address] [id number] Policy Writer Typist: Jack Del Rosario MD, Phone: [phone] Procedures Date Code Description Status 01/07/2019 11402 EKG-Tracing And Report Completed 11/16/2018 23393 Echocardiogram Complete Completed 06/15/2018 04082 Echocardiogram Complete Completed 12/21/2017 28751 Radiology, Distal Femur--Knee 1 Or 2 Views Completed 12/13/2017 62289 Echocardiogram Complete Completed 12/07/2017 43877 Radiology, Distal Femur--Knee 1 Or 2 Views Completed 11/09/2017 26250 Radiology, Distal Femur--Knee 1 Or 2 Views Completed 10/30/2017 35426 Radiology, Distal Femur--Knee 1 Or 2 Views Completed 10/30/2017 98499 tibial fracture proximal closed (plateau)w/o manipulation Completed 12/01/2016 53218 Radiology, Both Knees Standing Completed 10/26/2016 13982 Echocardiogram Complete Completed 10/25/2016 12850 EKG-Tracing And Report Completed 07/19/2016 71340 Radiology, Knee 3 Views Completed 12/10/2015 06709 Radiology, Knee 3 Views Completed 11/24/2015 80201 Total Knee Arthroplasty medial&lateral compartments w/wo Completed willams res 11/24/2015 10426 Total Knee Arthroplasty medial&lateral compartments w/wo Completed willams res 11/24/2015 93195 Total Knee Arthroplasty medial&lateral compartments w/wo Completed willams res 11/03/2015 89595 Radiology, Knee 3 Views Completed 10/26/2015 37258 Echocardiogram Complete Completed 08/24/2015 65881 Radiology, Knee 3 Views Completed 08/11/2015 82828 Total Knee Arthroplasty medial&lateral compartments w/wo Completed willams res 08/11/2015 04359 Total Knee Arthroplasty medial&lateral compartments w/wo Completed willams res 08/11/2015 83478 Total Knee Arthroplasty medial&lateral compartments w/wo Completed willams res 07/27/2015 28808 Radiology, Knee 3 Views Completed 06/04/2015 18840 Radiology, Both Knees Standing Completed 06/04/201547337 Asp./Injection major joint Completed 03/05/201531907 Asp./Injection major joint Completed 03/05/2015 Asp./Injection major joint Completed 01/13/2015 92574 EKG-Tracing And Report Completed 12/11/2014 05608 ECHO Transthoracic Inc Performance Continuous Completed Electrocardio Mon 12/10/201428388 Asp./Injection major joint Completed 12/04/2014 82203 X-Ray Knee Complete W/Obliques & Tunnel And/Or Standing Completed Views 12/01/2014 88440 EKG-Tracing And Report Completed 10/10/2014 75450 Doppler ECHO Color Flow Mapping Completed 10/10/2014 68485 Doppler Echocardiogram Complete Completed 10/10/2014 82730 Transesophageal Echocardiogram Completed 10/01/2014 24893 Pulmonary Stress Test Simple Completed 09/11/2014 51947 EKG-Tracing And Report Completed 07/15/2014 99454 Anesthesia, Repair Hernia Lower Abdomen Completed 02/27/2014 99731 Echocardiogram Complete Completed 01/15/201400197 Asp./Injection major joint Completed 01/15/201408202 Asp./Injection major joint Completed 07/23/2013 30098 X-Ray Knee Complete W/Obliques & Tunnel And/Or Standing Completed Views 07/23/2013 96432 X-Ray Knee Complete W/Obliques & Tunnel And/Or Standing Completed Views 07/23/201341171 Asp./Injection major joint Completed 07/23/2013 Asp./Injection major joint Completed 07/03/2013 27607 Echocardiogram Complete Completed 05/23/2013 85291 EKG-Tracing And Report Completed 08/01/2011 51156 Stress Test Interpre And Report Only Completed 08/01/2011 19471 Stress Test Physician Super Only Completed 07/01/2011 51348 Holter Monitor 24HR Inter/Report Completed 06/28/2011 02501 EKG-Tracing And Report Completed 06/14/2011 95314 Stress Test Interpre And Report Only Completed 06/14/2011 92373 Stress Test Physician Super Only Completed 06/13/2011 76023 EKG Interpretation And Report Only Completed Encounters Type Date Location Provider Dx Diagnosis Office Visit 01/07/2019 Cardiology Office Olimpia Muñoz I35.0 Nonrheumatic aortic 2:40p Jorge, MSN, (valve) stenosis 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 Trina Medina, FAC disease of [place] coronary artery w/o ang pctrs I35.0 Nonrheumatic aortic (valve) stenosis S82.102D Unsp fx upper end of l tibia, subs for clos fx w routn heal X58.xxxD Exposure to other specified factors, subsequent encounter Office Visit 11/09/2017 3:00p Orthopaedic Office Ifeanyi Lopez, M25.562 Pain in left M.D. knee Office Visit 05/04/2017 8:40a Cardiology Office Olimpia Muñoz I25.10 [facility] Jorge, disease of MSN, ACDS BLOCK 1 OPERATOR [place] coronary artery w/o ang pctrs I35.0 Nonrheumatic aortic (valve) stenosis E78.2 Mixed hyperlipidemia I10 Essential (primary) hypertension Office Visit 12/01/2016 8:30a Orthopaedic Office Ifeanyi Lopez, Z47.1 Aftercare M.D. 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 primary 8:30a Office Trina Suggs osteoarthritis, right knee Z47.1 Aftercare following joint replacement surgery Office Visit 10/20/2015 9:40a Cardiology Office Anshul Abad, I25.10 Athscl heart MD disease of [place] coronary artery w/o ang pctrs Z01.818 Encounter for other preprocedural examination I35.0 Nonrheumatic aortic (valve) stenosis I10 Essential (primary) hypertension E78.2 Mixed hyperlipidemia Office Visit 10/05/2015 Lc Lopez M17.12 Unilateral primary 9:30a Office Trina Suggs osteoarthritis, left knee Z47.1 Aftercare following joint replacement surgery Office Visit 08/11/2015 9:54a Andrade [email or web address] Unilateral primary Jackson Hu M.D. osteoarthritis, left [facility] knee Z47.1 Aftercare following joint replacement surgery I25.10 Athscl heart disease of [place] coronary artery w/o ang pctrs I10 Essential (primary) hypertension Office Visit 06/04/2015 Lc Lopez 715.16 Osteoarthrosis 8:30a Office Trina Suggs Localized Prim Lower Leg Office Visit 04/15/2015 Cardiology Office Anshul Abad, 414.01 Coronary 2:30p Atherosclerosis Zuni 786.05 Shortness Of Breath 424.1 Aortic Valve Disorder 401.1 Hypertension Benign V72.81 Examination Preoperative Cardiovascular Office Visit 03/05/2015 Lc Lopez, 715.16 Osteoarthrosis 8:30a Office Trina Suggs Localized Prim Lower Leg Office Visit 01/13/2015 Cardiology Office Anshul Abad, 414.01 Coronary 11:40a Atherosclerosis [place] 786.05 Shortness Of Breath 424.1 Aortic Valve Disorder 401.1 Hypertension Benign Office Visit 12/19/2014 Cardiology [place] 414.01 Coronary 11:00a Office EDGAR Bella Atherosclerosis [place] 786.05 Shortness Of Breath 424.1 Aortic Valve Disorder 401.1 Hypertension Benign 272.4 Hyperlipidemia Other Unspec Office Visit 12/10/2014 Orthopaedic John, 715.16 Osteoarthrosis 8:30a Office Trina Suggs Localized Prim Lower Leg Office Visit 12/04/2014 Lc Lopez 715.16 Osteoarthrosis 8:30a Office Trina Suggs Localized Prim Lower Leg Office Visit 12/01/2014 Cardiology Office Anshul Abad, 414.01 Coronary 11:00a Atherosclerosis [place] 786.05 Shortness Of Breath 424.1 Aortic Valve Disorder 401.1 Hypertension Benign Office Visit 09/11/2014 9:20a Cardiology Office Aaron France 424.1 Aortic Valve MD Juan, PhD Disorder 414.01 Coronary Atherosclerosis [place] 272.4 Hyperlipidemia Other Unspec 401.1 Hypertension Benign Office Visit 02/27/2014 10:30a Cardiology Office [place] 307.47 Sleep Stage Or A., ANP Sleep Arousal Dysfunction Other 424.1 Aortic Valve Disorder 414.01 Coronary Atherosclerosis [place] 272.4 Hyperlipidemia Other Unspec 401.1 Hypertension Benign Office Visit 01/15/2014 Orthopaedic Domingo 715.16 Osteoarthrosis 2:00p Office Tristian Hoyt, Localized Prim Lower D.O. Leg Office Visit 08/26/2013 Cardiology Office Aaron France 424.1 Aortic Valve 9:40a MD Juan, PhD Disorder 414.01 Coronary Atherosclerosis [place] 272.4 Hyperlipidemia Other Unspec 401.1 Hypertension Benign Office Visit 07/23/2013 Orthopaedic Domingo 715.15 Osteoarthrosis 11:00a Office Tristian Hoyt Localized Prim D.O. Pelvic & Thigh 715.16 Osteoarthrosis Localized Prim Lower Leg Office Visit 06/27/2013 Cardiology [place] 414.01 Coronary 9:10a Office A., ANP Atherosclerosis [place] 272.4 Hyperlipidemia Other Unspec 786.05 Shortness Of Breath 401.1 Hypertension Benign Office Visit 05/23/2013 Cardiology Aaron France 414.01 Coronary 9:40a Office MD Juan, PhD Atherosclerosis [place] 272.4 Hyperlipidemia Other Unspec 401.1 Hypertension Benign Office Visit 11/22/2012 Cardiology Aaron France 414.01 Coronary 1:10p Office MD Juan, PhD Atherosclerosis [place] 272.4 Hyperlipidemia Other Unspec 401.1 Hypertension Benign Office Visit 10/03/2012 Orthopaedic Nirali Ibarra.11 Osteoarthrosis 8:40a Office Robbie Bella MD Localized Prim Shoulder Region Office Visit 08/28/2012 Orthopaedic Nirali Ibarra.11 Osteoarthrosis 8:40a Office Robbie Bella MD Localized Prim Shoulder Region Office Visit 07/31/2012 Orthopaedic Nirali Ibarra.11 Osteoarthrosis 8:50a Office Robbie Bella MD Localized Prim Shoulder Region Office Visit 06/28/2012 Orthopaedic Fred, 715.11 Osteoarthrosis 1:30p Office Robbie Bella MD Localized Prim Shoulder Region Office Visit 05/22/2012 Cardiology Office Aaron France 414.01 Coronary 11:20a MD Juan, PhD Atherosclerosis [place] 272.4 Hyperlipidemia Other Unspec 401.1 Hypertension Benign 427.31 Atrial Fibrillation Office Visit 03/22/2012 Cardiology Aaron France 414.01 Coronary 1:10p Office MD Juan, PhD Atherosclerosis [place] 272.4 Hyperlipidemia Other Unspec 401.1 Hypertension Benign 427.31 Atrial Fibrillation Office Visit 01/20/2012 Cardiology Aaron France 414.01 Coronary 3:30p Office MD Juan, PhD Atherosclerosis [place] 272.4 Hyperlipidemia Other Unspec 401.1 Hypertension Benign 427.31 Atrial Fibrillation Office Visit 11/17/2011 Cardiology [place] 414.01 Coronary 3:10p Office A., ANP Atherosclerosis [place] 272.4 Hyperlipidemia Other Unspec 401.1 Hypertension Benign 427.31 Atrial Fibrillation Office Visit 10/13/2011 10:20a Cardiology Office Aaron France 401.1 Hypertension Ricardo Martinez MD, PhD 414.01 Coronary Atherosclerosis [place] 272.4 Hyperlipidemia Other Unspec Office Visit 07/13/2011 10:00a Cardiology Office Aaron France 427.31 Alex Martinez MD, PhD Fibrillation 413.9 Angina Pectoris Other Unspec 414.01 Coronary Atherosclerosis [place] 272.4 Hyperlipidemia Other Unspec 401.1 Hypertension Benign 786.05 Shortness Of Breath 786.59 Pain Chest Other Office Visit 06/28/2011 2:40p Cardiology Office [place] 413.9 Angina Pectoris A., ANP Other Unspec 414.01 Coronary Atherosclerosis [place] 272.4 Hyperlipidemia Other Unspec 401.1 Hypertension Benign 786.05 Shortness Of Breath 786.59 Pain Chest Other 427.31 Atrial Fibrillation Plan of Treatment Future Appointment(s):01/09/2020 9:40 am - Michael Daniel M.D., FACC at Cardiology Vsbyzh9901/07/2019 - Olimpia Muñoz, PADMA, FNPI35.0 Nonrheumatic aortic (valve) stenosisNew Orders:Echocardiogram, Ordered: Comments:We will re-evaluate with an echo in one yearI25.10 Atherosclerotic heart disease of [place] coronary artery withComments:Continue with medical management. No changes.E78.5 Hyperlipidemia, unspecifiedComments:Will obtain the most recent bloodwork.I10 Essential (primary) hypertensionComments:No changes.AllFollow up:Follow up visit in one year with echo just prior
--- OUTSIDE RECORDS SUMMARY | 2019-01-27 17:19 | XMS REPORT | Continuity of Care Document ---
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 Tobacco Use Start: Unknown Never Smoked Cigarettes ETOH Use Occasionally consumes alcohol Tobacco Use Start: Unknown Patient has never smoked Smoking Status Reviewed: 08/08/18 Patient has never smoked Allergies, Adverse Reactions, Alerts Date Description Reaction Status Severity Comments 12/20/2012 Ramipril rash/urticaria Active Medications Medication Date Status Form Strength Qnty SIG Indications Ordering Provider Sildenafil 01/23/ Active Tablets 20mg 60tabs 1 by mouth I27.2 Still, Citrate 2016 twice a day DO Dieudonne Sertraline HCL 02/26/ Active Tablets 25mg 90tabs Take 1 Still, 2013 Tablet By Dieudonne, Mouth Every DO Day Metoprolol 05/22/ Active Tablets 25mg 180tab Take 1 Still, Tartrate 2012 s Tablet By Dieudonne, Mouth Twice DO A Day Aspirin / Active Tablets 81mg 1 by mouth Unknown 0000 every day Losartan / Active Tablets 25mg 90tabs Take 1 Still, Potassium 0000 Tablet By Dieudonne, Mouth Every DO Day Simvastatin / Active Tablets 80mg 90tabs Take 1 Still, 0000 Tablet By Dieudonne, Mouth Every DO Day Doxycycline 07/22/ Hx Tablets 100mg 2tabs 2 by mouth S20.369S Ry, Hyclate 2016 - today Ricki 2016 Sildenafil 11/25/ Hx Tablets 20mg 60tabs 1 by mouth I27.2 Still, Citrate 2016 - twice a day Dieudonne, 2016 Sildenafil 11/12/ Hx Tablets 20mg 60tabs 1 by mouth I27.2 Still, Citrate 2015 - twice a day Dieudonne, 2015 Spiriva 02/05/ Hx Capsules 18mcg 90caps inhale the J44.9 Still, Handihaler 2014 - contents of Dieudonne, capsule DO 2017 via handihaler once daily Simvastatin 05/22/ Hx Tablets 40mg 90tabs Take 1 Cheko 2011 - tablet by Dieudonne, 01/23/ mouth every DO 2016 day Aspirin Low 08/08/ Hx Chewtabs 81mg 100tab 1 po qd Getachew, Avelina 2010 - s Francis 2014 Viagra 12/04/ Hx Tablets 100mg 12tabs 1 by mouth Cheko 2009 - every day as Dieudonne DO 2015 Aspirin / Hx Tablets 325mg 1 by mouth Unknown 0000 - every day 2015 Clopidogrel / Hx Tablets 75mg 1 by mouth Unknown Bisulfate 0000 - every day 2015 Immunizations CPT Code Status Date Vaccine Lot # [id number] Given 08/08/2018 Prevnar 13 Pneumococal Conjugate Vaccine [id number] Given 06/27/2018 Influenza Vaccine, Inactivated, Subunit, [place] [address] Given 07/19/2017 Fluzone Highdose Age 65 And Over Preservative & Antibiotic Free [id number] Given 08/04/2016 Fluzone Trivalent Immunization 80692 Given 06/10/2015 Fluzone Highdose Age 65 And Over Preservative & Antibiotic Free 97198 Given 06/07/2014 Afluria Or Fluvirin Flu Vac Intramuscular 35124 Given 06/07/2014 Afluria Or Fluvirin Flu Vac Intramuscular 32714 Given 06/11/2013 Afluria Or Fluvirin Flu Vac Intramuscular 39495 Given 06/11/2013 Afluria Or Fluvirin Flu Vac Intramuscular 20610 Given 01/30/2013 Tdap (Adacel) Ages 7 And Above Only 14935 Given 06/20/2012 Zoster (Zostavax) Vital Signs Date Vital Result Comment 01/04/2019 10:11am Weight 195.00 lb Heart Rate 60 /min BP Systolic 130 mmHg BP Diastolic 82 mmHg Respiratory Rate 18 /min Height 66.5 inches 5'6.50" BMI (Body Mass Index) 31.0 kg/m2 08/08/2018 8:01am Weight 194.00 lb Heart Rate 72 /min BP Systolic 110 mmHg BP Diastolic 70 mmHg Respiratory Rate 18 /min Height 66.5 inches 5'6.50" BMI (Body Mass Index) 30.8 kg/m2 01/24/2018 8:01am Weight 195.00 lb Heart Rate 72 /min BP Systolic 128 mmHg BP Diastolic 74 mmHg Respiratory Rate 18 /min Height 67.25 inches 5'7.25" (07/2017) BMI (Body Mass Index) 30.3 kg/m2 07/26/2017 1:53pm Weight 194.00 lb Heart Rate 68 /min BP Systolic 126 mmHg BP Diastolic 70 mmHg Respiratory Rate 18 /min Height 67.25 inches 5'7.25" (07/2017) BMI (Body Mass Index) 30.2 kg/m2 07/22/2017 9:58am Weight 191.00 lb Heart Rate 72 /min BP Systolic 150 mmHg BP Diastolic 88 mmHg Respiratory Rate 18 /min Height 67.25 inches 5'7.25" (07/2016) BMI (Body Mass Index) 29.7 kg/m2 01/23/2017 2:01pm Weight 195.00 lb Heart Rate 76 /min BP Systolic 138 mmHg BP Diastolic 84 mmHg Respiratory Rate 18 /min Height 67.25 inches 5'7.25" (07/2016) BMI (Body Mass Index) 30.3 kg/m2 09/05/2016 1:01pm Body Temperature 98.1 F Weight 198.00 lb Heart Rate 68 /min BP Systolic 138 mmHg BP Diastolic 80 mmHg Respiratory Rate 17 /min Height 67.25 inches 5'7.25" (07/2016) BMI (Body Mass Index) 30.8 kg/m2 07/21/2016 11:03am Weight 188.00 lb Heart Rate 60 /min BP Systolic 134 mmHg BP Diastolic 70 mmHg Respiratory Rate 18 /min Height 67.25 inches 5'7.25" (07/2016) BMI (Body Mass Index) 29.2 kg/m2 12/16/2015 8:07am Weight 191.00 lb Heart Rate 78 /min BP Systolic 140 mmHg BP Diastolic 80 mmHg Respiratory Rate 18 /min 11/12/2015 9:35am Weight 194.00 lb Heart Rate 64 /min BP Systolic 138 mmHg BP Diastolic 80 mmHg Respiratory Rate 18 /min Height 68 inches 5'8" BMI (Body Mass Index) 29.5 kg/m2 07/09/2015 10:56am Weight 190.00 lb Heart Rate 70 /min BP Systolic 116 mmHg BP Diastolic 62 mmHg Respiratory Rate 18 /min Height 68 inches 5'8" BMI (Body Mass Index) 28.9 kg/m2 05/19/2015 8:51am Weight 192.00 lb Heart Rate 68 /min BP Systolic 142 mmHg BP Diastolic 72 mmHg Respiratory Rate 18 /min Height 68 inches 5'8" BMI (Body Mass Index) 29.2 kg/m2 02/05/2015 8:03am Weight 192.00 lb Heart Rate 64 /min BP Systolic 134 mmHg BP Diastolic 74 mmHg Respiratory Rate 19 /min Height 68 inches 5'8" BMI (Body Mass Index) 29.2 kg/m2 07/31/2014 8:02am Weight 188.00 lb Heart Rate 52 /min BP Systolic 138 mmHg BP Diastolic 76 mmHg Respiratory Rate 18 /min Height 68 inches 5'8" 06/28/2014 9:13am Weight 186.00 lb Heart Rate 72 /min BP Systolic 124 mmHg BP Diastolic 74 mmHg Respiratory Rate 18 /min Height 68 inches 5'8" 04/23/2014 8:31am Weight 185.00 lb Heart Rate 68 /min BP Systolic 126 mmHg BP Diastolic 70 mmHg Respiratory Rate 18 /min Height 68 inches 5'8" 02/20/2014 2:11pm Weight 182.00 lb Heart Rate 70 /min BP Systolic 120 mmHg BP Diastolic 70 mmHg Respiratory Rate 19 /min Height 68 inches 5'8" 01/29/2014 8:01am Weight 182.00 lb Heart Rate 78 /min BP Systolic 132 mmHg BP Diastolic 78 mmHg Respiratory Rate 18 /min Height 68 inches 5'8" 08/01/2013 3:14pm Weight 185.00 lb Heart Rate 72 /min BP Systolic 102 mmHg BP Diastolic 60 mmHg Respiratory Rate 18 /min Height 68 inches 5'8" 01/30/2013 10:37am Body Temperature 97.5 F Weight 183.00 lb Heart Rate 64 /min BP Systolic 136 mmHg BP Diastolic 70 mmHg Respiratory Rate 18 /min Height 68 inches 5'8" 12/20/2012 1:16pm Weight 188.00 lb Heart Rate 80 /min BP Systolic 130 mmHg BP Diastolic 80 mmHg Respiratory Rate 20 /min Height 68 inches 5'8" 11/14/2012 9:40am Weight 190.00 lb BP Systolic 150 mmHg BP Diastolic 80 mmHg Respiratory Rate 20 /min Height 68 inches 5'8" 11/201205/22/2012 1:23pm Weight 183.00 lb Down 10 LBS Heart Rate 68 /min BP Systolic 122 mmHg BP Diastolic 80 mmHg Respiratory Rate 20 /min Height 68 inches 5'8" 11/22/2011 1:30pm Weight 193.00 lb Heart Rate 72 /min BP Systolic 150 mmHg BP Diastolic 72 mmHg Respiratory Rate 20 /min Height 68 inches 5'8" 10/17/2011 2:08pm Weight 194.00 lb Heart Rate 70 /min BP Systolic 134 mmHg BP Diastolic 82 mmHg Respiratory Rate 20 /min Height 68 inches 5'8" O2 % BldC Oximetry 98 % 08/08/2011 11:32am Weight 189.00 lb Heart Rate 80 /min BP Systolic 120 mmHg BP Diastolic 70 mmHg Respiratory Rate 20 /min Height 68 inches 5'8" 06/22/2011 1:57pm Weight 188.00 lb Per Patient Heart Rate 68 /min BP Systolic 94 mmHg BP Diastolic 70 mmHg Respiratory Rate 17 /min Height 68 inches 5'8" 04/25/2011 1:13pm Weight 189.00 lb Heart Rate 80 /min BP Systolic 140 mmHg BP Diastolic 80 mmHg Respiratory Rate 20 /min Height 68 inches 5'8" 10/26/2010 8:53am Weight 190.00 lb Heart Rate 64 /min BP Systolic 140 mmHg BP Diastolic 80 mmHg 09/13/2010 2:53pm Body Temperature 97.4 F Weight 191.00 lb Heart Rate 78 /min BP Systolic 140 mmHg BP Diastolic 70 mmHg 04/23/2010 8:41am Weight 196.00 lb Heart Rate 80 /min BP Systolic 140 mmHg BP Diastolic 76 mmHg 01/26/2010 3:23pm Weight 187.00 lb Heart Rate 64 /min BP Systolic 170 mmHg BP Diastolic 92 mmHg 12/09/2009 11:20am Weight 182.00 lb Heart Rate 72 /min BP Systolic 150 mmHg BP Diastolic 74 mmHg O2 % BldC Oximetry 95 % 12/04/2009 10:18am Body Temperature 97.6 F Weight 179.00 lb Heart Rate 94 /min BP Systolic 150 mmHg BP Diastolic 90 mmHg O2 % BldC Oximetry 90 % 07/20/2009 1:21pm Weight 180.00 lb Heart Rate 72 /min BP Systolic 160 mmHg BP Diastolic 80 mmHg 05/18/2009 1:31pm Weight 175.00 lb Heart Rate 80 /min BP Systolic 132 mmHg BP Diastolic 80 mmHg 04/17/2009 11:13am BP Systolic 146 mmHg BP Diastolic 78 mmHg 04/17/2009 11:13am Weight 182.00 lb Heart Rate 76 /min BP Systolic 140 mmHg BP Diastolic 90 mmHg Respiratory Rate 15 /min 11/12/2008 10:20am Weight 182.00 lb BP Systolic 130 mmHg BP Diastolic 80 mmHg 05/05/2008 4:31pm Weight 183.00 lb Up 8 LBS Heart Rate 80 /min BP Systolic 140 mmHg BP Diastolic 80 mmHg Height 71 inches 5'11" 01/18/2008 10:27am Body Temperature 97.9 F Weight 175.00 lb Down 4# Heart Rate 84 /min BP Systolic 124 mmHg L/LG BP Diastolic 74 mmHg L/LG Respiratory Rate 15 /min Height 71 inches 5'11" O2 % BldC Oximetry 94 % Ra After Ambulation 12/27/2007 9:32am Weight 179.00 lb Heart Rate 72 /min BP Systolic 150 mmHg BP Diastolic 76 mmHg Height 71 inches 5'11" 11/01/2007 11:21am Weight 184.00 lb Heart Rate 80 /min BP Systolic 118 mmHg BP Diastolic 88 mmHg Height 71 inches 5'11" 09/27/2007 10:11am Heart Rate 80 /min BP Systolic 150 mmHg BP Diastolic 80 mmHg Height 71 inches 5'11" 08/21/2007 1:39pm Body Temperature 96.0 F Weight 186.00 lb Heart Rate 70 /min BP Systolic 120 mmHg BP Diastolic 80 mmHg Respiratory Rate 16 /min Height 71 inches 5'11" 09/21/2006 10:13am Weight 184.00 lb Heart Rate 80 /min BP Systolic 140 mmHg BP Diastolic 80 mmHg Height 71 inches 5'11" 07/31/2006 1:58pm BP Systolic 168 mmHg BP Diastolic 94 mmHg 07/31/2006 1:58pm Weight 191.00 lb Heart Rate 66 /min BP Systolic 170 mmHg BP Diastolic 90 mmHg Respiratory Rate 20 /min Results Test Date Facility Test Result H/L Range Note CBC with Auto Diff-fcmg 08/01/2018 [facility] 6.7 K/uL 4.1-11.0 RBC 4.97 M/uL 4.60-6.10 Hemoglobin 15.8 gm/dL 13.5-18.0 Hematocrit 46.6 % 41.0-53.0 MCV 93.8 fL 80.0-97.0 MCH 31.8 pg 27.0-32.0 MCHC 33.9 g/dL 32.0-36.0 RDW 13.6 % 11.5-14.5 PLT Count 242 K/ul 140-400 MPV 8.8 FL 7.1-10.7 Neutrophil 50.0 % 35.0-75.0 Lymphocyte 32.2 % 16.0-52.0 Monocyte 9.5 % 2.0-10.0 Eosinophil 7.7 % High 0.0-5.0 Basophil 0.6 % 0.0-4.0 Abs Neutrophils 3.3 K/uL 2.1-8.0 Abs Lymphocytes 2.1 K/uL 0.8-5.5 Abs Monocytes 0.6 K/uL 0.1-1.0 Abs Eosinophils 0.5 K/uL 0.0-0.5 Abs Basophils 0.0 K/uL 0.0-0.3 Basic (BMP) 08/01/2018 [facility] Sodium 141 mmol/L 135-146 1 Potassium 4.4 mmol/L 3.5-5.2 Chloride# 105 mmol/L 97-110 2 Carbon Dioxide 28 mmol/L 24-34 Glucose 102 mg/dL 70-105 BUN 18 mg/dL 6-26 Creatinine 1.0 mg/dL 0.5-1.4 Calcium 9.2 mg/dL 8.5-10.2 Non Nikki Egfr >60 >60 3 Nikki Egfr >60 >60 4 Anion Gap 8 mmol/L 5-15 5 Laboratory test finding 08/01/2018 [facility] TSH 2.38 uIU/mL 0.35-4.94 Lipid Treatment 08/01/2018 [facility] Cholesterol 149 mg/dL 50-199 Triglycerides 78 mg/dL 30-200 HDL 45 mg/dL - 6 Chol/ HDL Ratio 3.3 ratio Low 4.0-6.7 VLDL 16 mg/dL 2-29 LDL (Calc) 89 mg/dL 20-99 7 Alt 19 U/L 3-42 Ast 21 U/L 8-42 Basic (BMP) 01/12/2018 [facility] Sodium 140 mmol/L 135-146 8 Potassium 4.5 mmol/L 3.5-5.2 Chloride# 104 mmol/L 97-110 9 Carbon Dioxide 28 mmol/L 24-34 Glucose 98 mg/dL 70-105 BUN 20 mg/dL 6-26 Creatinine 0.9 mg/dL 0.5-1.4 Calcium 9.4 mg/dL 8.5-10.2 Non Nikki Egfr >60 >60 10 Nikki Egfr >60 >60 11 Anion Gap 8 mmol/L 5-15 12 Lipid Treatment 01/12/2018 [facility] Cholesterol 152 mg/dL 50-199 Triglycerides 80 mg/dL 30-200 HDL 46 mg/dL - 13 Chol/ HDL Ratio 3.3 ratio Low 4.0-6.7 VLDL 16 mg/dL 2-29 LDL (Calc) 90 mg/dL 20-99 14 Alt 19 U/L 3-42 Ast 21 U/L 8-42 CBC With Auto Diff 07/19/2017 [facility] WBC 7.7 K/uL 4.1-11.0 RBC 5.22 M/uL 4.60-6.10 Hemoglobin 16.7 gm/dL 13.5-18.0 Hematocrit 49.8 % 41.0-53.0 MCV 95.5 fL 80.0-97.0 MCH 32.0 pg 27.0-32.0 MCHC 33.5 g/dL 32.0-36.0 RDW 13.9 % 11.5-14.5 PLT Count 246 K/ul 140-400 MPV 9.2 FL 7.1-10.7 Neutrophil 61.7 % 35.0-75.0 Lymphocyte 21.2 % 16.0-52.0 Monocyte 10.3 % High 2.0-10.0 Eosinophil 6.1 % High 0.0-5.0 Basophil 0.7 % 0.0-4.0 Abs Neutrophils 4.8 K/uL 2.1-8.0 Abs Lymphocytes 1.6 K/uL 0.8-5.5 Abs Monocytes 0.8 K/uL 0.1-1.0 Abs Eosinophils 0.5 K/uL 0.0-0.5 Abs Basophils 0.1 K/uL 0.0-0.3 Basic (BMP) 07/19/2017 [facility] Sodium 141 mmol/L 135-146 15 Potassium 4.3 mmol/L 3.5-5.2 Chloride# 105 mmol/L 97-110 16 Carbon Dioxide 27 mmol/L 24-34 Glucose 55 mg/dL Low 70-105 Creatinine 1.0 mg/dL 0.5-1.4 Calcium 9.5 mg/dL 8.5-10.2 Non Nikki Egfr >60 >60 17 Nikki Egfr >60 >60 18 Anion Gap 9 mmol/L 7-16 19 BUN 22 mg/dL 6-26 Laboratory test finding 07/19/2017 [facility] TSH 2.48 uIU/mL 0.35-4.94 Lipid Treatment 07/19/2017 [facility] Cholesterol 152 mg/dL 50-199 Triglycerides 107 mg/dL 30-200 HDL 46 mg/dL 29-71 20 Chol/ HDL Ratio 3.3 ratio Low 4.0-6.7 VLDL 21 mg/dL 2-29 LDL (Calc) 84 mg/dL 20-99 21 Alt 19 U/L 3-42 Ast 20 U/L 8-42 Laboratory test 03/30/2017 [facility] (medicare) Negative Negative 22 finding Basic (BMP) 01/13/2017 [facility] Sodium 140 mmol/L 135-146 23, 24 Potassium 4.3 mmol/L 3.5-5.2 Chloride# 106 mmol/L 97-110 25 Carbon Dioxide 27 mmol/L 24-34 Glucose 95 mg/dL 70-105 BUN 21 mg/dL 6-26 Creatinine 1.0 mg/dL 0.5-1.4 Calcium 9.1 mg/dL 8.5-10.2 Non Nikki Egfr >60 >60 26 Nikki Egfr >60 >60 27 Anion Gap 11 mmol/L 7-16 28 Lipid Treatment 01/13/2017 [facility] Cholesterol 150 mg/dL 50-199 Triglycerides 85 mg/dL 30-200 HDL 42 mg/dL 29-71 29 Chol/ HDL Ratio 3.5 ratio Low 4.0-6.7 VLDL 17 mg/dL 2-29 LDL (Calc) 91 mg/dL 20-99 30 Alt 19 U/L 3-42 Ast 21 U/L 8-42 Liver Function 12/08/2016 [facility] Total Protein 6.8 g/ dL N 6.4-8.2 31 Tests (315)- - Albumin 3.5 g/dL N 3.4-5.0 Globulin 3.3 g/dL N 1.9-4.3 Alb/Glob 1.1 ratio Bilirubin,Total 0.7 mg/dL N 0.2-1.0 Bilirubin,Direct 0.1 mg/dL N 0.0-0.2 Bilirubin,Indirect 0.6 mg/dL N 0.0-0.9 Sgot/Ast 24 U/L N 15-37 SGPT/Alt 31 U/L N 12-78 Alkaline Phosphatase 83 U/L N 45-117 LDL Cholesterol 12/08/2016 [facility] Cholesterol 152 mg/ dL <200 32 Profile (315)- - Triglycerides 89 mg/dL <150 33 HDL Cholesterol 47 mg/dL >40 34 LDL-Cholesterol 87 mg/dL < 100 35 CBC With Auto Diff 07/15/2016 [facility] WBC 6.7 K/uL 4.1-11.0 RBC 5.38 M/uL 4.60-6.10 Hemoglobin 16.8 gm/dL 13.5-18.0 Hematocrit 49.9 % 41.0-53.0 MCV 92.7 fL 80.0-97.0 MCH 31.1 pg 27.0-32.0 MCHC 33.6 g/dL 32.0-36.0 RDW 14.3 % 11.5-14.5 PLT Count 240 K/ul 140-400 Neutrophil 59.2 % 35.0-75.0 Lymphocyte 26.0 % 16.0-52.0 Monocyte 7.8 % 2.0-10.0 Eosinophil 6.2 % High 0.0-5.0 Basophil 0.8 % 0.0-4.0 Abs Neutrophils 4.0 K/uL 2.1-8.0 Abs Lymphocytes 1.7 K/uL 0.8-5.5 Abs Monocytes 0.5 K/uL 0.1-1.0 Abs Eosinophils 0.4 K/uL 0.0-0.5 Abs Basophils 0.1 K/uL 0.0-0.3 Basic (BMP) 07/15/2016 [facility] Sodium 140 mmol/L 134-142 Potassium 4.4 mmol/L 3.5-5.2 Chloride 106 mmol/L 97-109 Carbon Dioxide 23 mmol/L Low 24-34 Glucose 102 mg/dL 70-105 BUN 16 mg/dL 6-26 Creatinine 0.9 mg/dL 0.5-1.4 Calcium 9.3 mg/dL 8.5-10.2 Anion Gap 15 mmol/L High 6-14 Non Nikki Egfr >60 >60 36 Nikki Egfr >60 >60 37 Laboratory test finding 07/15/2016 [facility] TSH 2.03 uIU/mL 0.35-4.94 Lipid Treatment 07/15/2016 [facility] Cholesterol 161 mg/dL 50-199 Triglycerides 99 mg/dL 30-200 HDL 38 mg/dL 29-71 38 Chol/ HDL Ratio 4.2 ratio 4.0-6.7 VLDL 20 mg/dL 2-29 LDL (Calc) 103 mg/dL High 20-99 39 Alt 23 U/L 3-42 Ast 21 U/L 8-42 Laboratory test 07/15/2016 [facility] Vitamin B12 447 pg/mL 180-914 finding Basic Metabolic 11/26/2015 [facility] Glucose 128 mg/dL High 74-106 Panel (315)- - BUN 9 mg/dL 7-18 Creatinine 0.9 mg/dL 0.6-1.3 Glom Filtration Rate, Estimate >60 mL/min >60 If >60 mL/min >60 40 BUN/Creat 10.0 ratio Sodium 139 mmol/L 136-145 Potassium 3.9 mmol/L 3.5-5.1 Chloride 104 mmol/L 98-107 Carbon Dioxide 23 mmol/L 21-32 Anion Gap 12 mEq/L 8-16 Calcium 8.0 mg/dL Low 8.5-10.1 CBC W/Automated 11/26/2015 [facility] White Blood 13.5 K/ uL High 3.4-10.5 Diff (315)- - Count Red Blood Count 4.66 M/uL 4.20-5.80 Hemoglobin [...] 33.0-73.0 Lymph % 11.6 % Low 17.0-56.0 [place] % 9.8 % 0.0-10.0 Eo% 3.7 % 0.0-5.0 Bas% 0.1 % 0.1-1.0 Neut# 10.08 K/uL High 1.8-7.0 Lymph # 1.57 K/uL Low 1.8-7.0 [place] # 1.32 K/uL High 0.0-0.8 Eos # 0.50 K/uL 0.0-0.5 Baso # 0.02 K/uL Low 0.1-0.2 Hemoglobin/Hematocrit 11/26/2015 [facility] Hemoglobin 14.2 gm/dL 12.8-17.0 (315)- - Hematocrit 42.8 % 38.0-48.0 Hemoglobin/Hematocrit 11/25/2015 [facility] Hemoglobin 13.6 gm/dL 12.8-17.0 (315)- - Hematocrit 42.0 % 38.0-48.0 Basic Metabolic Panel 11/24/2015 [facility] Glucose 86 mg /dL 74-106 (315)- - BUN 13 mg/dL 7-18 Creatinine 1.0 mg/dL 0.6-1.3 Glom Filtration Rate, Estimate >60 mL/min >60 If >60 mL/min >60 41 BUN/Creat 13.0 ratio Sodium 142 mmol/L 136-145 Potassium 4.0 mmol/L 3.5-5.1 Chloride 108 mmol/L High 98-107 Carbon Dioxide 28 mmol/L 21-32 Anion Gap 6 mEq/L Low 8-16 Calcium 8.2 mg/dL Low 8.5-10.1 Laboratory test 11/24/2015 [facility] Knee Replacement See Note 42 finding (315)- - CBC With Auto Diff 11/12/2015 [facility] WBC 8.4 K/uL 4.1-11. 43 0 RBC 5.30 M/uL 4.60-6.10 Hemoglobin 15.8 gm/dL 13.5-18.0 Hematocrit 48.8 % 41.0-53.0 MCV 92.0 fL 80.0-97.0 MCH 29.8 pg 27.0-32.0 MCHC 32.4 g/dL 32.0-36.0 RDW 13.6 % 11.5-14.5 PLT Count 248 K/ul 140-400 Neutrophil 59.6 % 35.0-75.0 Lymphocyte 22.2 % 16.0-52.0 Monocyte 10.5 % High 2.0-10.0 Eosinophil 7.1 % High 0.0-5.0 Basophil 0.6 % 0.0-4.0 Abs Neutrophils 5.0 K/uL 2.1-8.0 Abs Lymphocytes 1.9 K/uL 0.8-5.5 Abmon 0.9 K/uL 0.1-1.0 Abs Eosinophils 0.6 K/uL High 0.0-0.5 Abs Basophils 0.0 K/uL 0.0-0.3 Basic (BMP) 11/12/2015 [facility] Sodium 138 mmol/L 134-142 Potassium 4.9 mmol/L 3.5-5.2 Chloride 105 mmol/L 97-109 Carbon Dioxide 27 mmol/L 24-34 Glucose 74 mg/dL 70-105 BUN 21 mg/dL 6-26 Creatinine 0.8 mg/dL 0.5-1.4 Calcium 9.4 mg/dL 8.5-10.2 Anion Gap 11 mmol/L 6-14 Non Nikki Egfr >60 >60 44 Nikki Egfr >60 >60 45 Basic Metabolic Panel 08/14/2015 [facility] Glucose 105 mg/dL 74-106 (315)- - BUN 12 mg/dL 7-18 Creatinine 0.8 mg/dL 0.6-1.3 Glom Filtration Rate, Estimate >60 mL/min >60 If >60 mL/min >60 46 BUN/Creat 15.0 ratio Sodium 134 mmol/L Low 136-145 Potassium 4.4 mmol/L 3.5-5.1 Chloride 104 mmol/L 98-107 Carbon Dioxide 27 mmol/L 21-32 Anion Gap 3 mEq/L Low 8-16 Calcium 8.5 mg/dL 8.5-10.1 Laboratory test 08/14/2015 [facility] C-Reactive 166.0 mg /L High <3.0 finding (315)- - Protein,Quant CBC W/Automated 08/14/2015 [facility] White Blood Count 12.6 K/uL High 3.4-10.5 Diff (315)- - Red Blood Count 4.13 M/uL Low 4.20-5.80 [...] 33.0-73.0 Lymph % 15.7 % Low 17.0-56.0 [place] % 10.4 % High 0.0-10.0 Eo% 1.6 % 0.0-5.0 Bas% 0.2 % 0.1-1.0 Neut# 9.12 K/uL High 1.8-7.0 Lymph # 1.98 K/uL 1.8-7.0 [place] # 1.31 K/uL High 0.0-0.8 Eos # 0.20 K/uL 0.0-0.5 Baso # 0.02 K/uL Low 0.1-0.2 Hemoglobin/Hematocrit 08/14/2015 [facility] Hemoglobin/ Hematocrit See 47 (315)- - Note Urinalysis With 08/13/2015 [facility] Urine Color YELLOW Yellow Microscopic (315)- - Urine Clarity CLEAR Clear Urine Glucose - Dipstick 250 mg/dL High Negative Urine Bilirubin - Dipstick NEGATIVE Negative Urine Ketone NEGATIVE mg/dL Negative Urine Specific [place] <=1.005 Low 1.010-1.030 Urine Blood SMALL High Negative Urine PH 7.0 6.5-7.5 Urine Protein - Dipstick NEGATIVE mg/dL Negative Urine Urobilinogen - Dipstick 0.2 E.U./dL 0.2-1.0 Urine Nitrite - Dipstick NEGATIVE Negative Urine Leuk Esterase NEGATIVE Negative Urine RBC 0-2 rbc/hpf 0-2 Urine WBC 0-2 wbc/hpf 0-7 Urine Epithelial Cells VERY FEW NONESEEN/lpf Urine Screen 08/13/2015 [facility] Ua RFX Micro + See Note 48 (315)- - Culture II Basic Metabolic 08/13/2015 [facility] Glucose 135 mg/dL High 74-106 Panel (315)- - BUN 12 mg/dL 7-18 Creatinine 0.9 mg/dL 0.6-1.3 Glom Filtration Rate, Estimate >60 mL/min >60 If >60 mL/min >60 49 BUN/Creat 13.3 ratio Sodium 135 mmol/L Low 136-145 Potassium 4.0 mmol/L 3.5-5.1 Chloride 100 mmol/L 98-107 Carbon Dioxide 27 mmol/L 21-32 Anion Gap 8 mEq/L 8-16 Calcium 8.2 mg/dL Low 8.5-10.1 CBC W/Automated 08/13/2015 [facility] White Blood 15.1 K/ uL High 3.4-10.5 Diff (315)- - Count Red Blood Count 3.96 M/uL Low 4.20-5.80 [...] 33.0-73.0 Lymph % 8.9 % Low 17.0-56.0 [place] % 9.5 % 0.0-10.0 Eo% 0.5 % 0.0-5.0 Bas% 0.1 % 0.1-1.0 Neut# 12.22 K/uL High 1.8-7.0 Lymph # 1.35 K/uL Low 1.8-7.0 [place] # 1.44 K/uL High 0.0-0.8 Eos # 0.08 K/uL 0.0-0.5 Baso # 0.02 K/uL Low 0.1-0.2 Hemoglobin/Hematocrit 08/13/2015 [facility] Hemoglobin 12.7 gm/dL Low 12.8-17.0 (315)- - Hematocrit 38.1 % 38.0-48.0 Hemoglobin/Hematocrit 08/12/2015 [facility] Hemoglobin 12.7 gm/dL Low 12.8-17.0 (315)- - Hematocrit 38.6 % 38.0-48.0 Basic Metabolic Panel 08/11/2015 [facility] Glucose 157 mg/dL High 74-106 (315)- - BUN 20 mg/dL High 7-18 Creatinine 1.0 mg/dL 0.6-1.3 Glom Filtration Rate, Estimate >60 mL/min >60 If >60 mL/min >60 50 BUN/Creat 20.0 ratio Sodium 140 mmol/L 136-145 Potassium 3.8 mmol/L 3.5-5.1 Chloride 108 mmol/L High 98-107 Carbon Dioxide 23 mmol/L 21-32 Anion Gap 9 mEq/L 8-16 Calcium 8.6 mg/dL 8.5-10.1 Laboratory test 08/11/2015 [facility] Knee Replacement See Note 51 finding (315)- - Type And Screen 08/11/2015 [facility] Patient Blood Type A POS (315)- - Antibody Screen Negative Negative Lipid Treatment 01/29/2015 [facility] Cholesterol 164 mg/dL 50-199 Triglycerides 135 mg/dL 30-200 HDL 42 mg/dL 29-71 52 Chol/ HDL Ratio 3.9 ratio Low 4.0-6.7 VLDL 27 mg/dL 2-29 LDL (Calc) 95 mg/dL 20-99 53 Alt 17 U/L 3-42 Ast 18 U/L 8-42 CBC With Auto Diff 01/29/2015 [facility] WBC 6.3 K/uL 4.1-11.0 RBC 5.08 M/uL 4.60-6.10 Hemoglobin 16.0 gm/dL 13.5-18.0 Hematocrit 47.5 % 41.0-53.0 MCV 93.5 fL 80.0-97.0 MCH 31.4 pg 27.0-32.0 MCHC 33.6 g/dL 32.0-36.0 RDW 14.2 % 11.5-14.5 PLT Count 226 K/ul 140-400 Neutrophil 62.5 % 35.0-75.0 Lymphocyte 23.4 % 16.0-52.0 Monocyte 8.5 % 2.0-10.0 Eosinophil 4.8 % 0.0-5.0 Basophil 0.8 % 0.0-4.0 Abs Neutrophils 3.9 K/uL 2.1-8.0 Abs Lymphocytes 1.5 K/uL 0.8-5.5 Abmon 0.5 K/uL 0.1-1.0 Abs Eosinophils 0.3 K/uL 0.0-0.5 Abs Basophils 0.1 K/uL 0.0-0.3 Basic (BMP) 01/29/2015 [facility] Sodium 139 mmol/L 134-142 Potassium 4.7 mmol/L 3.5-5.2 Chloride 106 mmol/L 97-109 Carbon Dioxide 26 mmol/L 24-34 Glucose 97 mg/dL 70-105 BUN 18 mg/dL 6-26 Creatinine 1.0 mg/dL 0.5-1.4 Calcium 9.2 mg/dL 8.5-10.2 Anion Gap 12 mmol/L 6-14 Non Nikki Egfr >60 >60 54 Nikki Egfr >60 >60 55 Laboratory test finding 01/29/2015 [facility] TSH 1.82 uIU/mL 0.34-5.60 Vitamin B12 522 pg/mL 180-914 Laboratory test finding 02/20/2014 N2N/CCD Import % Baso. 0.8 % 0.0-2.0 % Eos. 4.1 % High 0.0-4.0 % Lymph 25 % 20-44 % [place] 6.3 % 2.0-10.0 % Compa 64 % 50-70 A/G Ratio 1.5 ratio Low 1.6-2.2 Absolute Baso. 0.1 K/ul 0.0-0.3 Absolute Eos. 0.3 K/ul 0.0-0.5 Absolute Lymph. 2.1 K/ul 0.8-4.8 Absolute [place]. 0.5 K/ul 0.1-1.0 Absolute Compa. 5.35 K/ul 2.05-7.63 Albumin 3.8 g/dL 3.5-5.0 Alk. Phos. 68.0 U/L 30.0-126.0 Alt 23.0 U/L 21.0-72.0 Anion Gap 7.0 mmol/L Low 10.0-20.0 Ast 19.0 U/L 17.0-59.0 BUN 28.0 mg/dL High 9.0-21.0 BUN/Creat Ratio 28.0 ratio High 12.0-20.0 C-Reactive Protein,Quant < 2.9 mg/L 0.0-4.9 Calcium 9.1 mg/dL 8.7-10.5 Chloride 107.0 mmol/L 98.0-107.0 Co2 26.0 mmol/L 22.0-30.0 Comment See Note . 56 Creatinine-Serum 1.0 mg/dL 0.8-1.5 Esr Sedrate 5.0 sec 0.0-20.0 Ferritin 158.8 ng/mL 5-244 Globulin 2.5 g/dL Low 2.7-4.3 Glucose 87.0 mg/dL 75.0-110.0 HCT 46.6 % 37.0-51.0 HGB 15.2 Gm/dl 12.0-16.0 MCH 30.7 pg 26.0-32.0 MCHC 32.7 g/dL 31.0-36.0 MCV 93.7 Fl 80.0-97.0 MPV 6.9 fL 6.0-10.0 PLT 291 K/ul 140-440 Potasium 4.0 mmol/L 3.6-5.0 RBC 5.0 M/ul 4.2-6.3 RDW 12.6 % 11.5-14.5 Serum Iron 104 g/dL 31-144 57 Sodium 140.0 mmil/L 137.0-145.0 TSH 1.31 uIU/ml 0.50-6.00 Testosterone,Serum 481 ng/dL 348-1197 Total Bilirubin 0.6 mg/dL 0.2-1.3 Total Protein 6.3 g/dL 6.3-8.2 Vitamin B12 1160.0 pg/mL High 200.0-900.0 WBC 8.4 K/ul 4.1-10.9 ck 131.0 26.0-190.0 eGFR 69.5 mi/minper1.73 58 Laboratory test finding 07/03/2013 N2N/CCD Import Alb/Glob 1.1 ratio Albumin 3.5 g/dL 3.5-5.0 Alkaline Phosphatase 66 U/L 50-136 Anion Gap 12 mEq/L 8-16 BUN 23 mg/dL 5-23 BUN/Creat 23.0 ratio Bilirubin,Direct 0.1 mg/dL 0.1-0.4 Bilirubin,Indirect 0.5 mg/dL 0.0-0.9 Bilirubin,Total 0.6 mg/dL 0.2-1.2 Calcium 8.5 mg/dL 8.5-10.1 Carbon Dioxide 26 mEq/L 18-29 Chloride 107 mmol/L 98-107 Creatinine 1.0 mg/dL 0.5-1.4 Globulin 3.1 g/dL 1.9-4.3 Glom Filtration Rate, Estimate >60 mL/min >60 Glucose 93 mg/dL 76-115 If >60 mL/min >60 59 Potassium 4.3 mmol/L 3.5-5.1 SGPT/Alt 39 U/L 30-65 Sgot/Ast 22 U/L 16-40 Sodium 141 mmol/L 136-145 Total Protein 6.6 g/dL 6.3-8.0 LDL Cholesterol Profile 07/03/2013 N2N/CCD Import Cholesterol 148 mg/dL 120-200 HDL Cholesterol 36 mg/dL 29-83 LDL-Cholesterol 86 mg/dL 62-185 Triglycerides 129 mg/dL 16-231 Laboratory test 05/23/2012 N2N/CCD Import Testosterone,Serum 526 ng/dL 348-1197 60 finding Laboratory test 01/16/2012 N2N/CCD Import Alb/Glob 1.3 ratio finding Albumin 3.8 g/dL 3.5-5.0 Alkaline Phosphatase 57 U/L 50-136 Bilirubin,Direct 0.1 mg/dL 0.1-0.4 Bilirubin,Indirect 0.6 mg/dL 0.0-0.9 Bilirubin,Total 0.7 mg/dL 0.2-1.2 Globulin 3.0 g/dL 1.9-4.3 SGPT/Alt 30 U/L 30-65 Sgot/Ast 25 U/L 16-40 Total Protein 6.8 g/dL 6.3-8.0 LDL Cholesterol Profile 01/16/2012 N2N/CCD Import Cholesterol 181 mg/dL 120-200 HDL Cholesterol 47 mg/dL 29-83 LDL-Cholesterol 113 mg/dL 62-185 Triglycerides 104 mg/dL 16-231 Amiodarone 07/13/2011 N2N/Webs Import Amiodarone,Serum 0.7 ug/mL Low 1.0- 2.5 61 (Cordarone), Serum Noramiodarone,Serum 0.7 ug/mL Low 1.0-2.5 62 Laboratory test 06/14/2011 N2N/CCD Import Troponin-I 0.28 ng/mL 0.00- 0.50 63 finding Laboratory test 06/13/2011 N2N/CCD Import Act Partial 29.3 s 23.4-37.4 64 finding Thrombo Time CK 125 U/L 26-190 65 Magnesium 2.0 mg/dL 1.7-2.3 66 Troponin-I 0.34 ng/mL 0.00-0.50 67 Protime 06/13/2011 N2N/CCD Import Inr 1.0 0.9-1.1 68 Protime 13.4 s 12.2-15.2 Laboratory test finding 06/13/2011 N2N/CCD Import Anion Gap 16 mEq/L 8- 16 BUN 15 mg/dL 5-23 BUN/Creat 16.6 ratio Bas% 0.5 % 0.1-1.0 Baso # 0.03 K/uL Low 0.1-0.2 CK 140 U/L 26-190 69 Calcium 9.0 mg/dL 8.5-10.1 Carbon Dioxide 24 mEq/L 18-29 Chloride 104 mmol/L 98-107 Creatinine 0.9 mg/dL 0.5-1.4 Eo% 4.9 % 0.0-5.0 Eos # 0.32 K/uL 0.0-0.5 Glom Filtration Rate, Estimate >60 mL/min >60 Glucose 111 mg/dL 76-115 Hematocrit 46.4 % 38.0-48.0 Hemoglobin 15.5 gm/dL 12.8-17.0 If >60 mL/min >60 70 Lymph # 1.68 K/uL 1.2-4.0 Lymph % 25.6 % 17.0-56.0 Mean Cell Volume 91.0 fl 80.0-96.0 Mean Corpuscular HGB 30.4 pg 27.0-33.0 Mean Corpuscular HGB Conc 33.4 g/dL 31.7-36.0 Mean Platelet Volume 9.6 fL 6.6-10.6 [place] # 0.57 K/uL 0.0-0.6 [place] % 8.7 % 0.0-10.0 Neut# 3.95 K/uL 1.8-7.0 Neut% 60.3 % 33.0-73.0 Platelet Count 293 K/uL 150-400 Potassium 4.0 mmol/L 3.5-5.1 Red Blood Count 5.10 M/uL 4.20-5.80 Red Cell Distri Width %CV 13.6 % 11.6-15.8 Red Cell Distri Width SD 44.4 fl 36-51 Sodium 140 mmol/L 136-145 Troponin-I 0.33 ng/mL 0.00-0.50 71 White Blood Count 6.6 K/uL 3.4-10.5 Laboratory test finding 04/25/2011 N2N/CCD Import Alt 34 U/L 21-72 Ast 28 U/L 17-59 Lipid Panel 04/25/2011 N2N/CCD Import Chol/HDL Ratio 3.8 72 Cholesterol 200 mg/dL High 50-199 HDL Cholesterol 52 mg/dL 29-67 LDL 125 mg/dL 20-129 Triglycerides 114 mg/dL 30-249 VLDL Cholesterol 23 mg/dL Laboratory test finding 10/26/2010 N2N/CCD Import Alt 30 U/L 21-72 Anion Gap 11 mmol/L 10-20 Ast 24 U/L 17-59 BUN 17 mg/dL 9-21 BUN/CR Ratio 18.3 Ratio 12-20 Calcium 9.5 mg/dL 8.7-10.5 Carbon Dioxide 28 mmol/L 22-30 Chloride 107 mmol/L 98-107 Creatinine, Serum 0.9 mg/dL 0.8-1.5 Glucose 87 mg/dL 75-110 Potassium 4.5 mmol/L 3.6-5.0 Sodium 142 mmol/L 137-145 Lipid Panel 10/26/2010 N2N/CCD Import Chol/HDL Ratio 3.8 73 Cholesterol 208 mg/dL High 50-199 HDL Cholesterol 54 mg/dL 29-67 LDL 138 mg/dL High 20-129 Triglycerides 81 mg/dL 30-249 VLDL Cholesterol 16 mg/dL Laboratory test 04/23/2010 N2N/CCD Import Absolute 0.079 K/ul 0.0-0.3 74 finding Basophils Absolute Eosinophils 0.324 K/ul 0.0-0.5 Absolute Lymphocytes 1.83 K/ul 0.8-4.8 Absolute Monocytes 0.568 K/ul 0.1-1.0 Absolute Neutrophils 3.32 K/ul 2.05-7.63 Alt 22 U/L 21-72 Anion Gap 12 mmol/L 10-20 Ast 25 U/L 17-59 BUN 21 mg/dL 9-21 BUN/CR Ratio 23.0 Ratio High 12-20 Basophil 1.3 % 0-2 Calcium 9.5 mg/dL 8.7-10.5 Carbon Dioxide 26 mmol/L 22-30 Chloride 106 mmol/L 98-107 Creatinine, Serum 0.9 mg/dL 0.8-1.5 Eosinophil 5.3 % High 0-4 Glucose 76 mg/dL 75-110 Hematocrit 43.5 % 37.0-51.0 Hemoglobin 15.2 GM/dl 12.0-16.0 Lymphocytes 29.9 % 20-44 MCH 30.8 pg 26.0-32.0 MCHC 34.9 g/dL 31.0-36.0 MCV 88 FL 80-97 Monocytes 9.3 % 2-10.0 Neutrophils 54.3 % 50-70 Platelet Count 334 K/ul 140-440 Potassium 4.4 mmol/L 3.6-5.0 RBC 4.93 M/ul 4.2-6.3 RDW 11.4 % Low 11.5-14.5 Sodium 140 mmol/L 137-145 WBC 6.1 K/ul 4.1-10.9 Lipid Panel 04/23/2010 N2N/CCD Import Chol/HDL Ratio 4.7 75 Cholesterol 244 mg/dL High 50-199 HDL Cholesterol 51 mg/dL 29-67 LDL 171 mg/dL High 20-129 Triglycerides 112 mg/dL 30-249 VLDL Cholesterol 22 mg/dL Laboratory test 07/20/2009 N2N/CCD Import Methylmalonic Acid 336 nmol/L 73-376 76 finding (S) Vitamin B12 909 pg/mL 208-964 Laboratory test 05/18/2009 N2N/CCD Import Methylmalonic Acid 425 nmol/L High 73-376 77 finding (S) Vitamin B12 473 pg/mL 208-964 Laboratory test 04/17/2009 N2N/CCD Import Absolute 0.078 K/ul 0.0-0.3 finding Basophils Absolute Eosinophils 0.350 K/ul 0.0-0.5 Absolute Lymphocytes 1.91 K/ul 0.8-4.8 Absolute Monocytes 0.414 K/ul 0.1-1.0 Absolute Neutrophils 5.92 K/ul 2.05-7.63 Anion Gap 12 mmol/L 10-20 BUN 16 mg/dL 9-21 BUN/CR Ratio 16.2 Ratio 12-20 Basophil 0.9 % 0-2 Calcium 9.4 mg/dL 8.7-10.5 Carbon Dioxide 30 mmol/L 22-30 Chloride 104 mmol/L 98-107 Creatinine, Serum 1.0 mg/dL 0.8-1.5 Eosinophil 4.0 % 0-4 Glucose 72 mg/dL Low 75-110 Hematocrit 47.2 % 37.0-51.0 Hemoglobin 14.8 GM/dl 12.0-16.0 Lymphocytes 22.0 % 20-44 MCH 28.9 pg 26.0-32.0 MCHC 31.4 g/dL 31.0-36.0 MCV 92 FL 80-97 Monocytes 4.8 % 2-10.0 Neutrophils 68.2 % 50-70 Platelet Count 301 K/ul 140-440 Potassium 4.1 mmol/L 3.6-5.0 RBC 5.14 M/ul 4.2-6.3 RDW 12.7 % 11.5-14.5 Sodium 141 mmol/L 137-145 TSH 1.003 uIU/ml 0.50-6.00 WBC 8.7 K/ul 4.1-10.9 Laboratory test 05/21/2008 N2N/Webs Import Esr (Sed Rate/Westergren) 1 SEC 0-20 finding TSH 1.642 uIU/ml 0.50-6.00 Laboratory test finding 05/21/2008 N2N/Webs Import Prolactin 8.9 ng/mL 3.28-19.68 Testosterone,Serum 605 ng/dL 241-827 Vitamin B12 422 pg/mL 208-964 Laboratory test finding 02/26/2008 N2N/Webs Import Alt 22 U/L 21-72 78 Ast 31 U/L 17-59 Lipid Panel 02/26/2008 N2N/Webs Import Chol/HDL Ratio 3.7 79 Cholesterol 187 mg/dL 50-199 HDL Cholesterol 50 mg/dL 29-67 LDL 127 mg/dL 20-129 Triglycerides 52 mg/dL 30-249 VLDL Cholesterol 10 mg/dL Laboratory test 10/16/2007 N2N/Webs Import Absolute 0.06 K/ul 0.0-0.3 80 finding Basophils Absolute Eosinophils 0.32 K/ul 0.0-0.5 Absolute Lymphocytes 1.80 K/ul 0.8-4.8 Absolute Monocytes 0.36 K/ul 0.1-1.0 Absolute Neutrophils 5.36 K/ul 2.05-7.63 Anion Gap 14 mmol/L 10-20 BUN 23 mg/dL High 9-21 BUN/CR Ratio 19.6 Ratio 12-20 Basophil 0.8 % 0-2 Calcium 9.1 mg/dL 8.7-10.5 Carbon Dioxide 24 mmol/L 22-30 Chloride 106 mmol/L 98-107 Creatinine, Serum 1.2 mg/dL 0.8-1.5 Eosinophil 4.0 % 0-4 Glucose 99 mg/dL 75-110 Hematocrit 47.4 % 37.0-51.0 Hemoglobin 15.9 GM/dl 12.0-16.0 Lymphocytes 22.8 % 20-44 MCH 30.8 pg 26.0-32.0 MCHC 33.5 g/dL 31.0-36.0 MCV 92 FL 80-97 Monocytes 4.6 % 2-10.0 Neutrophils 67.8 % 50-70 PSA 0.53 ng/mL 0.00-4.00 Platelet Count 266 K/ul 140-440 Potassium 4.5 mmol/L 3.6-5.0 RBC 5.15 M/ul 4.2-6.3 RDW 11.7 % 11.5-14.5 Sodium 139 mmol/L 137-145 WBC 7.9 K/ul 4.1-10.9 Lipid Panel 10/16/2007 N2N/CCD Import Chol/HDL Ratio 4.6 81 Cholesterol 258 mg/dL High 50-199 HDL Cholesterol 55 mg/dL 29-67 LDL 187 mg/dL High 20-129 Triglycerides 79 mg/dL 30-249 VLDL Cholesterol 16 mg/dL Laboratory test 09/21/2006 N2N/CCD Import Absolute Basophils 0.03 K/ul 0.0-0.3 finding Absolute Eosinophils 0.38 K/ul 0.0-0.5 Absolute Lymphocytes 1.95 K/ul 0.8-4.8 Absolute Monocytes 0.43 K/ul 0.1-1.0 Absolute Neutrophils 5.26 K/ul 2.05-7.63 Anion Gap 10 mmol/L 10-20 BUN 16 mg/dL 9-21 BUN/CR Ratio 16.7 Ratio 12-20 Basophil 0.4 % 0-2 Calcium 9.2 mg/dL 8.7-10.5 Carbon Dioxide 28 mmol/L 22-30 Chloride 107 mmol/L 98-107 Creatinine, Serum 0.9 mg/dL 0.8-1.5 Eosinophil 4.7 % High 0-4 Glucose 83 mg/dL 75-110 Hematocrit 44.9 % 37.0-51.0 Hemoglobin 15.4 GM/dl 12.0-16.0 Lymphocytes 24.2 % 20-44 MCH 30.1 pg 26.0-32.0 MCHC 34.4 g/dL 31.0-36.0 MCV 87 FL 80-97 Monocytes 5.3 % 2-10.0 Neutrophils 65.4 % 50-70 PSA 0.86 ng/mL 0.00-4.00 Platelet Count 276 K/ul 140-440 Potassium 4.1 mmol/L 3.6-5.0 RBC 5.14 M/ul 4.2-6.3 RDW 12.5 % 11.5-14.5 Sodium 140 mmol/L 137-145 WBC 8.0 K/ul 4.1-10.9 Lipid Panel 09/21/2006 N2N/CCD Import Chol/HDL Ratio 4.2 82 Cholesterol 230 mg/dL High 50-199 HDL Cholesterol 54 mg/dL 29-67 LDL 152 mg/dL High 20-129 Triglycerides 118 mg/dL 30-249 VLDL Cholesterol 24 mg/dL 1 Updated reference range on new analyzer 2 Updated reference range on new analyzer 3 Concerning GFR Guidelines: Normal function or mild renal disease, if clinically at risk: >/=60 mL/min Moderately decreased: 30-59 Severely decreased: 15-29 Renal failure: <15 Glomerular Filtration Rate (GFR) is estimated based on the MDRD equation, which assumes a steady state for creatinine as recommended by the National Kidney Disease Education Program in conjunction with the National Institutes of Health and the National Kidney Foundation. Clinical conditions in which it may be necessary to measure GFR by using clearance methods include extremes of age and body size, severe malnutrition or obesity, diseases of skeletal muscle, paraplegia or quadriplegia, vegetarian diet, rapidly changing kidney function, and calculation of the dose of potentially toxic drugs that are excreted by the kidneys. 4 Concerning GFR Guidelines for Americans: Normal function or mild renal disease, if clinically at risk: >/=60 mL/min Moderately decreased: 30-59 Severely decreased: 15-29 Renal failure: <15 5 Updated Reference Range 6 Per NCEP ATP III Guidelines: Results lower than 40 mg/dL are suggestive of increased risk for coronary artery disease. Results > or=to 60 mg/dL are considered a negative risk factor. 7 Per NCEP ATP III Guidelines: Normal Population <130 Patients with medical conditions: CHD/DM Optimal: <100 Borderline high: 130-159 High: 160-189 Very high: >189 8 Updated reference range on new analyzer 9 Updated reference range on new analyzer 10 Concerning GFR Guidelines: Normal function or mild renal disease, if clinically at risk: >/=60 mL/min Moderately decreased: 30-59 Severely decreased: 15-29 Renal failure: <15 Glomerular Filtration Rate (GFR) is estimated based on the MDRD equation, which assumes a steady state for creatinine as recommended by the National Kidney Disease Education Program in conjunction with the National Institutes of Health and the National Kidney Foundation. Clinical conditions in which it may be necessary to measure GFR by using clearance methods include extremes of age and body size, severe malnutrition or obesity, diseases of skeletal muscle, paraplegia or quadriplegia, vegetarian diet, rapidly changing kidney function, and calculation of the dose of potentially toxic drugs that are excreted by the kidneys. 11 Concerning GFR Guidelines for Americans: Normal function or mild renal disease, if clinically at risk: >/=60 mL/min Moderately decreased: 30-59 Severely decreased: 15-29 Renal failure: <15 12 Updated Reference Range 13 Per NCEP ATP III Guidelines: Results lower than 40 mg/dL are suggestive of increased risk for coronary artery disease. Results > or=to 60 mg/dL are considered a negative risk factor. 14 Per NCEP ATP III Guidelines: Normal Population <130 Patients with medical conditions: CHD/DM Optimal: <100 Borderline high: 130-159 High: 160-189 Very high: >189 15 Updated reference range on new analyzer 16 Updated reference range on new analyzer 17 Concerning GFR Guidelines: Normal function or mild renal disease, if clinically at risk: >/=60 mL/min Moderately decreased: 30-59 Severely decreased: 15-29 Renal failure: <15 Glomerular Filtration Rate (GFR) is estimated based on the MDRD equation, which assumes a steady state for creatinine as recommended by the National Kidney Disease Education Program in conjunction with the National Institutes of Health and the National Kidney Foundation. Clinical conditions in which it may be necessary to measure GFR by using clearance methods include extremes of age and body size, severe malnutrition or obesity, diseases of skeletal muscle, paraplegia or quadriplegia, vegetarian diet, rapidly changing kidney function, and calculation of the dose of potentially toxic drugs that are excreted by the kidneys. 18 Concerning GFR Guidelines for Americans: Normal function or mild renal disease, if clinically at risk: >/=60 mL/min Moderately decreased: 30-59 Severely decreased: 15-29 Renal failure: <15 19 Updated reference range on new analyzer 20 Per NCEP ATP III Guidelines: Results lower than 40 mg/dL are suggestive of increased risk for coronary artery disease. Results > or=to 60 mg/dL are considered a negative risk factor. 21 Per NCEP ATP III Guidelines: Normal Population <130 Patients with medical conditions: CHD/DM Optimal: <100 Borderline high: 130-159 High: 160-189 Very high: >189 22 FIT test given at visit with Dr Snyder Fastin hours 24 Updated reference range on new analyzer 25 Updated reference range on new analyzer 26 Concerning GFR Guidelines: Normal function or mild renal disease, if clinically at risk: >/=60 mL/min Moderately decreased: 30-59 Severely decreased: 15-29 Renal failure: <15 Glomerular Filtration Rate (GFR) is estimated based on the MDRD equation, which assumes a steady state for creatinine as recommended by the National Kidney Disease Education Program in conjunction with the National Institutes of Health and the National Kidney Foundation. Clinical conditions in which it may be necessary to measure GFR by using clearance methods include extremes of age and body size, severe malnutrition or obesity, diseases of skeletal muscle, paraplegia or quadriplegia, vegetarian diet, rapidly changing kidney function, and calculation of the dose of potentially toxic drugs that are excreted by the kidneys. 27 Concerning GFR Guidelines for Americans: Normal function or mild renal disease, if clinically at risk: >/=60 mL/min Moderately decreased: 30-59 Severely decreased: 15-29 Renal failure: <15 28 Updated reference range on new analyzer 29 Per NCEP ATP III Guidelines: Results lower than 40 mg/dL are suggestive of increased risk for coronary artery disease. Results > or=to 60 mg/dL are considered a negative risk factor. 30 Per NCEP ATP III Guidelines: Normal Population <130 Patients with medical conditions: CHD/DM Optimal: <100 Borderline high: 130-159 High: 160-189 Very high: >189 31 E78.2 32 Reference Guidelines*: Desirable: ........... < 200 mg/dL Borderline High: ..... 200-239 mg/dL High: ................ >=240 mg/dL * The National Cholesterol Education Program (NCEP) 33 Reference Guidelines*: Normal: ............. < 150 mg/dL Borderline High: .... 150-199 mg/dL High: ............... 200-499 mg/dL Very High: .......... > 500 mg/dL * Source: National Cholesterol Education Program (NCEP) 34 Reference Guidelines*: Low HDL: ..... < 40 mg/dL Normal: ..... 40-60 mg/dL Desirable: ... > 60 mg/dL *The National Cholesterol Education Program(NCEP) 35 Reference Guidelines*: Optimal:........... <100 mg/dL Near Optimal....... 100-129 mg/dL Borderline High.... 130-159 mg/dL High............... 160-189 mg/dL Very High.......... >=190 mg/dL * Source: National Cholesterol Education Program (NCEP) 36 Concerning GFR Guidelines: Normal function or mild renal disease, if clinically at risk: >/=60 mL/min Moderately decreased: 30-59 Severely decreased: 15-29 Renal failure: <15 Glomerular Filtration Rate (GFR) is estimated based on the MDRD equation, which assumes a steady state for creatinine as recommended by the National Kidney Disease Education Program in conjunction with the National Institutes of Health and the National Kidney Foundation. Clinical conditions in which it may be necessary to measure GFR by using clearance methods include extremes of age and body size, severe malnutrition or obesity, diseases of skeletal muscle, paraplegia or quadriplegia, vegetarian diet, rapidly changing kidney function, and calculation of the dose of potentially toxic drugs that are excreted by the kidneys. 37 Concerning GFR Guidelines for Americans: Normal function or mild renal disease, if clinically at risk: >/=60 mL/min Moderately decreased: 30-59 Severely decreased: 15-29 Renal failure: <15 38 Per NCEP ATP III Guidelines: Results lower than 40 mg/dL are suggestive of increased risk for coronary artery disease. Results > or=to 60 mg/dL are considered a negative risk factor. 39 Per NCEP ATP III Guidelines: Normal Population <130 Patients with medical conditions: CHD/DM Optimal: <100 Borderline high: 130-159 High: 160-189 Very high: >189 40 Note: Persistent reduction for 3 months or more in an eGFR <60 mL/min/1.73 m2 defines CKD. Patients with eGFR values >/=60 mL/min/1.73 m2 may also have CKD if evidence of persistent proteinuria is present. The original MDRD equation for estimated GFR is not valid for patients less than 18 years of age. Additional information may be found at [email or web address]. 41 Note: Persistent reduction for 3 months or more in an eGFR <60 mL/min/1.73 m2 defines CKD. Patients with eGFR values >/=60 mL/min/1.73 m2 may also have CKD if evidence of persistent proteinuria is present. The original MDRD equation for estimated GFR is not valid for patients less than 18 years of age. Additional information may be found at [email or web address]. 42 OPERATION/PROCEDURE Right total knee replacement. DIAGNOSIS: "KNEE, RIGHT, ARTHROPLASTY": - SEVERE DEGENERATIVE OSTEOARTHRITIC CHANGES. /[facility] 1109 GROSS Received in formalin in an appropriately labeled container with the patient' s name and accession number designated, "PORTION OF RIGHT KNEE". The specimen consists of multiple pieces of naylor-white, firm avelino tissue with an aggregate measurement of 11.3 x 10.4 x 4.5 cm. The surface is naylor-white and smooth. [employer] Mechanic sections, one cassette following decalcification. /clf PRE OPERATIVE DIAGNOSIS Right knee osteoarthritis. REVIEW CODE CODE: I Signed Electronically signed PERCY BROWNE MD [id number] Lopez 44 Concerning GFR Guidelines: Normal function or mild renal disease, if clinically at risk: >/=60 mL/min Moderately decreased: 30-59 Severely decreased: 15-29 Renal failure: <15 Glomerular Filtration Rate (GFR) is estimated based on the MDRD equation, which assumes a steady state for creatinine as recommended by the National Kidney Disease Education Program in conjunction with the National Institutes of Health and the National Kidney Foundation. Clinical conditions in which it may be necessary to measure GFR by using clearance methods include extremes of age and body size, severe malnutrition or obesity, diseases of skeletal muscle, paraplegia or quadriplegia, vegetarian diet, rapidly changing kidney function, and calculation of the dose of potentially toxic drugs that are excreted by the kidneys. 45 Concerning GFR Guidelines for Americans: Normal function or mild renal disease, if clinically at risk: >/=60 mL/min Moderately decreased: 30-59 Severely decreased: 15-29 Renal failure: <15 46 Note: Persistent reduction for 3 months or more in an eGFR <60 mL/min/1.73 m2 defines CKD. Patients with eGFR values >/=60 mL/min/1.73 m2 may also have CKD if evidence of persistent proteinuria is present. The original MDRD equation for estimated GFR is not valid for patients less than 18 years of age. Additional information may be found at [email or web address]. 47 08/14/15 LAB.EMM1 DUPLIACTE ORDER 48 08/13/15 LAB.JRD Deleted by [facility] 49 Note: Persistent reduction for 3 months or more in an eGFR <60 mL/min/1.73 m2 defines CKD. Patients with eGFR values >/=60 mL/min/1.73 m2 may also have CKD if evidence of persistent proteinuria is present. The original MDRD equation for estimated GFR is not valid for patients less than 18 years of age. Additional information may be found at [email or web address]. 50 Note: Persistent reduction for 3 months or more in an eGFR <60 mL/min/1.73 m2 defines CKD. Patients with eGFR values >/=60 mL/min/1.73 m2 may also have CKD if evidence of persistent proteinuria is present. The original MDRD equation for estimated GFR is not valid for patients less than 18 years of age. Additional information may be found at [email or web address]. 51 OPERATION/PROCEDURE Left total knee arthroplasty DIAGNOSIS: "KNEE, LEFT, ARTHROPLASTY": - SEVERE DEGENERATIVE ARTHRITIS CHANGES. [place] 1116 GROSS Received in formalin in a [...] Signed Electronically signed PERCY BROWNE MD 1131 52 Per NCEP ATP III Guidelines: Results lower than 40 mg/dL are suggestive of increased risk for coronary artery disease. Results > or=to 60 mg/dL are considered a negative risk factor. 53 Per NCEP ATP III Guidelines: Normal Population <130 Patients with medical conditions: CHD/DM Optimal: <100 Borderline high: 130-159 High: 160-189 Very high: >189 54 Concerning GFR Guidelines: Normal function or mild renal disease, if clinically at risk: >/=60 mL/min Moderately decreased: 30-59 Severely decreased: 15-29 Renal failure: <15 Glomerular Filtration Rate (GFR) is estimated based on the MDRD equation, which assumes a steady state for creatinine as recommended by the National Kidney Disease Education Program in conjunction with the National Institutes of Health and the National Kidney Foundation. Clinical conditions in which it may be necessary to measure GFR by using clearance methods include extremes of age and body size, severe malnutrition or obesity, diseases of skeletal muscle, paraplegia or quadriplegia, vegetarian diet, rapidly changing kidney function, and calculation of the dose of potentially toxic drugs that are excreted by the kidneys. 55 Concerning GFR Guidelines for Americans: Normal function or mild renal disease, if clinically at risk: >/=60 mL/min Moderately decreased: 30-59 Severely decreased: 15-29 Renal failure: <15 56 Adult male reference interval is based on a population of lean males up to 40 years old. Performed at: [facility] [id number] [employer] Driver: Faby Chan MD, Phone: [phone] QUERY: Is the Patient Fasting? U 58 For -Turkish patients multiply result by 1.180 59 Note: Persistent reduction for 3 months or more in an eGFR <60 mL/min/1.73 m2 defines CKD. Patients with eGFR values >/=60 mL/min/1.73 m2 may also have CKD if evidence of persistent proteinuria is present. The original MDRD equation for estimated GFR is not valid for patients less than 18 years of age. Additional information may be found at [email or web address]. 60 Performed at: [facility] [id number] [employer] Driver: Faby Chan MD, Phone: [phone] 61 Detection Limit=0.2 62 Detection Limit=0.2 Performed at: [facility] [id number] [employer] Driver: Jack Del Rosario MD, Phone: [phone] 63 0 - 0.5 ng/mL: No evidence of myocardial injury 0.6 - 1.4 ng/mL: Mild elevation, suggesting possible myocardial injury > 1.4 ng/mL: Consisten with myocardial injury 64 Is patient on heparin protocol? N Is patient on anticoagulants? Unknown QUERY: @[facility] Pat ID: QUERY: @[facility] Req #: QUERY: Anticoagulant Therapy? QUERY: Date of Last Dose: QUERY: Time of Last Dose: 65 QUERY: @[facility] Pat ID: QUERY: @EMR Req #: 66 QUERY: @[facility] Pat ID: QUERY: @[facility] Req #: 67 0 - 0.5 ng/mL: No evidence of myocardial injury 0.6 - 1.4 ng/mL: Mild elevation, suggesting possible myocardial injury > 1.4 ng/mL: Consisten with myocardial injury 68 THERAPEUTIC INR RANGE: 2.0 - 3.0 DVT, Pulmonary embolus, prophylaxis against venous thrombosis or systemic embolization in high risk patients. 2.5 - 3.5 Mechanical heart valves 69 QUERY: @[facility] Pat ID: QUERY: @[facility] Req #: 70 Note: Persistent reduction for 3 months or more in an eGFR <60 mL/min/1.73 m2 defines CKD. Patients with eGFR values >/=60 mL/min/1.73 m2 may also have CKD if evidence of persistent proteinuria is present. The original MDRD equation for estimated GFR is not valid for patients less than 18 years of age. Additional information may be found at www.kdo[facility].org. 71 0 - 0.5 ng/mL: No evidence of myocardial injury 0.6 - 1.4 ng/mL: Mild elevation, suggesting possible myocardial injury > 1.4 ng/mL: Consisten with myocardial injury 72 Normal Range: Male: <4.98 Female: <4.45 73 Normal Range: Male: <4.98 Female: <4.45 74 FASTING 75 Normal Range: Male: <4.98 Female: <4.45 76 The reference range for methylmalonic acid has been set at +3sd above the mean for healthy blood bank donors. In the clinical assessment of patients with megaloblastic anemias a cutoff of +3sd provides greater specificity in the diagnosis of the vitamin deficiency states, despite the sacrifice of some sensitivity. 77 The reference range for methylmalonic acid has been set at +3sd above the mean for healthy blood bank donors. In the clinical assessment of patients with megaloblastic anemias a cutoff of +3sd provides greater specificity in the diagnosis of the vitamin deficiency states, despite the sacrifice of some sensitivity. 78 FASTING schedule for 6-8 weeks fasting 79 Normal Range: Male: <4.98 Female: <4.45 80 schedule for 2 weeks 81 Normal Range: Male: <4.98 Female: <4.45 82 Normal Range: Male: <4.98 Female: <4.45 Procedures Date Code Description Status 07/26/2017 59441 Brief Emotional/Behav Assessment W/ Scoring Doc Per Completed Standard Inst 01/23/2017 64568 X-Ray Ankle Complete Completed 07/21/2016 73482 Screening Hearing Test Completed 07/09/2015 39539 Electrocardiogram Complete Completed Encounters Type Date Location Provider Dx Diagnosis Office Visit 08/08/2018 Dieudonne Koenig DO Z00.00 Encntr for general 8:00a adult medical exam w/o abnormal findings I10 Essential (primary) hypertension J44.9 Chronic obstructive pulmonary disease, unspecified M17.9 Osteoarthritis of knee, unspecified 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.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 F32.9 Major depressive disorder, single episode, unspecified E78.00 Pure hypercholesterolemia, unspecified 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 M25.572 Pain in LEFT ankle and joints of LEFT foot I27.20 Pulmonary hypertension, unspecified B35.1 Tinea unguium Z23 Encounter for immunization Z13.89 Encounter for screening for other disorder Z68.30 Body mass index (BMI) 30.0-30.9, adult Office Visit 01/24/2018 8:00a [facility] Dieudonne Still DO I10 Essential ( primary) hypertension J44.9 Chronic obstructive pulmonary disease, unspecified M17.9 Osteoarthritis of knee, unspecified 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.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 F32.9 Major depressive disorder, single episode, unspecified E78.00 Pure hypercholesterolemia, unspecified 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 M25.572 Pain in LEFT ankle and joints of LEFT foot I27.20 Pulmonary hypertension, unspecified B35.1 Tinea unguium Z68.30 Body mass index (BMI) 30.0-30.9, adult Office Visit 07/26/2017 2:00p [facility] Dieudonne Still DO Z00.01 Encounter for general adult medical exam w abnormal findings I10 Essential (primary) hypertension M17.9 Osteoarthritis of knee, unspecified I25.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 w/o ang pctrs J44.9 Chronic obstructive pulmonary disease, unspecified F52.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 F32.9 Major depressive disorder, single episode, unspecified E78.00 Pure hypercholesterolemia, unspecified 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 M25.572 Pain in LEFT ankle and joints of LEFT foot I27.20 Pulmonary hypertension, unspecified S20.469D Insect bite (nonvenomous) of unsp back wall of thorax, subs Office Visit 07/22/2017 10:00a [facility] Ricki Raza, S20.369S Insect bite of unsp DO front wall of thorax, sequela Office Visit 01/23/2017 1:45p [facility] Dieudonne Still DO I10 Essential ( primary) hypertension M17.9 Osteoarthritis of knee, unspecified I25.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 w/o ang pctrs J44.9 Chronic obstructive pulmonary disease, unspecified F52.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 F32.9 Major depressive disorder, single episode, unspecified I27.2 Other secondary pulmonary hypertension E78.00 Pure hypercholesterolemia, unspecified 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 M25.572 Pain in LEFT ankle and joints of LEFT foot Z12.11 Encounter for screening for malignant neoplasm of colon Office Visit 09/05/2016 1:00p [facility] Arin Albert, L02.821 Furuncle of head STRATEGIC ALLIANCES MANAGER [any part, except face] Office Visit 07/21/2016 10:30a [facility] Dieudonne Still DO Z00.01 Encounter for general adult medical exam w abnormal findings M17.9 Osteoarthritis of knee, unspecified I25.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 w/o ang pctrs J44.9 Chronic obstructive pulmonary disease, unspecified F52.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 F32.9 Major depressive disorder, single episode, unspecified I27.2 Other secondary pulmonary hypertension I10 Essential (primary) hypertension E78.00 Pure hypercholesterolemia, unspecified 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 Z12.11 Encounter for screening for malignant neoplasm of colon Office Visit 12/16/2015 8:15a [facility] Dieudonne Still DO M17.9 Osteoarthritis of knee, unspecified I10 Essential (primary) hypertension I25.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 w/o ang pctrs E78.0 Pure hypercholesterolemia J44.9 Chronic obstructive pulmonary disease, unspecified F52.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 F32.9 Major depressive disorder, single episode, unspecified I27.2 Other secondary pulmonary hypertension Office Visit 11/12/2015 9:00a [facility] Dieudonne Still DO Z01.810 Encounter for preprocedural cardiovascular examination M17.9 Osteoarthritis of knee, unspecified I25.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 w/o ang pctrs I10 Essential (primary) hypertension E78.0 Pure hypercholesterolemia J44.9 Chronic obstructive pulmonary disease, unspecified F52.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 F32.9 Major depressive disorder, single episode, unspecified I27.2 Other secondary pulmonary hypertension Office Visit 07/09/2015 10:30a [facility] Dieudonne Still DO Z01.810 Encounter for preprocedural cardiovascular examination M17.9 Osteoarthritis of knee, unspecified I25.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 w/o ang pctrs I10 Essential (primary) hypertension E78.0 Pure hypercholesterolemia J44.9 Chronic obstructive pulmonary disease, unspecified F52.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 F32.9 Major depressive disorder, single episode, unspecified Office Visit 05/19/2015 9:00a [facility] Dieudonne Still DO 414.00 Coronary Atherosclerosis Unspec Type Vessel Knik/Graft 401.1 Hypertension Benign 272.0 Hypercholesterolemia Pure 496 COPD Airway Obstruction Chronic Not Class Elsewhere 302.72 Psychosexual Dysfunction W/ Inhibited Sexual Excitement 281.0 Pernicious Anemia 311 Depressive Disorder Not Elsewhere Spec 715.96 Osteoarthrosis Unspec Genlzd Or Localzd Lower Leg Office Visit 02/05/2015 8:00a [facility] Dieudonne Still DO 414.00 Coronary Atherosclerosis Unspec Type Vessel Knik/Graft 401.1 Hypertension Benign 272.0 Hypercholesterolemia Pure 496 COPD Airway Obstruction Chronic Not Class Elsewhere 302.72 Psychosexual Dysfunction W/ Inhibited Sexual Excitement 281.0 Pernicious Anemia 719.46 Pain Joint Lower Leg 311 Depressive Disorder Not Elsewhere Spec Plan of Treatment Future Appointment(s):02/05/2019 7:35 am - Schedule, Laboratory at [facility]2018 8:00 am - Dieudonne Still DO at [facility]01/04/2019 - Dieudonne Still DOZ01.810 Encounter for preprocedural cardiovascular examinationFollow up:Follow up as scheduled.H26.9 Unspecified tbizkobzD50.9 Obesity, kwylmxeeyptF79 Essential ( primary) qpotgbmtkswiX93.9 Osteoarthritis of knee, ltvznutifycF40.10 Atherosclerotic heart disease of [place] coronary artery withF52.21 Male erectile jcitvfoiH33.9 Major depressive disorder, single episode, nmuvsexzvgoD32.00 Pure hypercholesterolemia, pyieiqlxxbwT51.1 Tinea kuurskhQ14.20 Pulmonary hypertension, lszuhuaqenqI67.572 Pain in LEFT ankle and joints of LEFT footD51.0 Vitamin B12 deficiency anemia due to intrinsic factor btrundV57.9 Chronic obstructive pulmonary disease, fxtlqdinahqW21.93 Unspecified hearing loss, bekkkhkqiQ53.31 Body mass index (BMI) 31.0-31.9, adult
[2019-01-27 17:24] VITALS: BP 137/70
--- NOTE | 2019-01-27 17:32 | UC ---
Respiratory Complaint HPI - HPI Summary HPI Summary: 78 y/o male presents to the urgent care c/o productive cough and wheezing w/ yellowish phlegm for the past 2 days. Pt reports also nasal congestion w/ yellowish nasal discharge and sinus pressure for the past week. He has been taking cough drops to alleviate symptoms, but yesterday he developed wheezing. About 2 years ago, he has similar symptoms and he had to be Rx Prednisone PO and albuterol to alleviate symptoms. Pt has low grade fever af the beginning of symptoms. Denies fever today, SOB, chest pain, dizziness, FLORES, abdominal pain , N/V/D. - History of Current Complaint Chief Complaint: UCGeneralIllness Stated Complaint: COUGH/CONGESTION/WHEEZING Time Seen by Provider: 01/27/19 17:30 Hx Obtained From: Patient Onset/Duration: Gradual Onset, Lasting Days - 2 days, Still Present, Worse Since - last night Timing: Intermittent Episodes Severity Initially: Mild Severity Currently: Moderate Pain Intensity: 0 Pain Scale Used: 0-10 Numeric Character: Cough: Productive, Sputum Description: - yellowish Aggravating Factors: Recumbent Position Alleviating Factors: OTC Meds Associated Signs And Symptoms: Positive: Chills, Wheezing, Nasal Congestion - yellowish, Sinus Discomfort. Negative: Fever, Dizziness - Risk Factors Pulmonary Embolism Risk Factors: Negative Cardiac Risk Factors: Negative Pseudomonas Risk Factors: Negative Tuberculosis Risk Factors: Negative - Allergies/Home Medications Allergies/Adverse Reactions: Allergies Allergy/AdvReac Type Severity Reaction Status Date / Time ramipril Allergy Intermediate rash/itchin Verified 01/27/19 17:24 g Home Medications: Home Medications Aspirin [Aspirin EC] 81 mg PO BEDTIME 01/27/19 [History Confirmed 01/27/19] Losartan TAB* [Cozaar TAB*] 25 mg PO DAILY 01/27/19 [History Confirmed 01/27/19] Metoprolol Tartrate TAB* [Lopressor TAB*] 25 mg PO BID 01/27/19 [History Confirmed 01/27/19] Sertraline* [Zoloft*] 25 mg PO DAILY 01/27/19 [History Confirmed 01/27/19] Simvastatin (NF) [Zocor (NF)] 80 mg PO BEDTIME 01/27/19 [History Confirmed 01/27] PMH/Surg Hx/FS Hx/Imm Hx Previously Healthy: Yes Endocrine History: Dyslipidemia Cardiovascular History: Hypertension Psychological History: Depression - Surgical History Surgical History: Yes Surgery Procedure, Year, and Place: bypass/triple 2013. bilat knee replacements. hernia repair. left cataract - Family History Known Family History: Positive: Hypertension - Social History Occupation: Retired Lives: With Family Alcohol Use: Occasionally Substance Use Type: None Smoking Status (MU): Never Smoked Tobacco Review of Systems All Other Systems Reviewed And Are Negative: Yes Constitutional: Positive: Negative Skin: Positive: Negative Eyes: Positive: Negative ENT: Positive: Nasal Discharge - yellowish, Sinus Congestion Respiratory: Positive: Cough - productive w/ yellowish phlegm, Other - wheezing Cardiovascular: Positive: Negative Gastrointestinal: Positive: Negative Genitourinary: Positive: Negative Motor: Positive: Negative Neurovascular: Positive: Negative Musculoskeletal: Positive: Negative Neurological: Positive: Headache - mild Psychological: Positive: Negative Is Patient Immunocompromised?: No Physical Exam - Summary Physical Exam Summary: Vital Signs Reviewed: Yes General: well developed, well nourished old male sitting in the examining table w/o any apparent distress Eyes: Positive: Conjunctiva Clear - PERRLA, EOMI, fundi grossly normal ENT: Positive: Normal ENT inspection, Hearing grossly normal, Pharynx normal, Nasal congestion - edematous and erythematous nasal mucosa, Nasal drainage - yellowish drainage, TMs normal. Negative: Tonsillar swelling, Tonsillar exudate Neck: Positive: Supple, Nontender, No Lymphadenopathy Respiratory: no orthopnea or dyspnea. Able to speak in full sentences, no retractions or accessory muscle use, no tripod position, stridor, or head bobbing. Positive breath sounds bilaterally. diffuse scattered wheezing and rhonchi on b/L lungs, no crackles or rales. Cardiovascular: Positive: RRR, No Murmur, Pulses Normal, Brisk Capillary Refill Abdomen Description: Positive: Nontender, No Organomegaly, Soft. Negative: CVA Tenderness (R), CVA Tenderness (L) Bowel Sounds: Positive: Present Musculoskeletal Exam: Normal Musculoskeletal: Positive: Strength Intact, ROM Intact, No Edema Neurological Exam: Normal Psychological Exam: Normal Skin Exam: Normal Triage Information Reviewed: Yes Vital Signs: Initial Vital Signs Temp 98.2 F 01/27/19 17:21 Pulse 68 01/27/19 17:21 Resp 15 01/27/19 17:21 BP 137/70 01/27/19 17:21 Pulse Ox 97 01/27/19 17:21 Respiratory Course/Dx - Course Course Of Treatment: 78 y/o male presents to the urgent care c/o productive cough and wheezing w/ yellowish phlegm for the past 2 days. Pt reports also nasal congestion w/ yellowish nasal discharge and sinus pressure for the past week. He has been taking cough drops to alleviate symptoms, but yesterday he developed wheezing. About 2 years ago, he has similar symptoms and he had to be Rx Prednisone PO and albuterol to alleviate symptoms. Pt has low grade fever af the beginning of symptoms. Denies fever today, SOB, chest pain, dizziness, FLORES, abdominal pain , N/V/D. Hx obtained. Pt w/ diffuse scattered wheezing and rhonchi on b/L lungs on examination. Pt is hemodynamically stable, Vital: WNL O2Sat: 97%. Chest X- ray ordered to r/o pneumonia. Impression: hyperinflation consistent w/ COPD observed. Pt given Prednisone 60 mg PO ordered and Duoneb treatment ordered. Pt tolerated well medications and his lungs improved. Pt states feeling better. Pt will be Tx for COPD exacerbation due to acute bronchitis, Rx Doxycycline PO , Prednisone taper dose and albuterol Inhaler. first dose given at the clinic since pharmacy is closed. Pt Strongly advised to f/u with his PCP for further management. He may be developing COPD. d/c instructions explained. Pt understood and agreed with D/C instructions and left the clinic hemodynamically stable. - Differential Dx/Diagnosis Differential Diagnosis/HQI/PQRI: Asthma, Bronchitis, Exacerbation Of COPD, Influenza, Lower Resp Infection, Sinusitis Provider Diagnosis: Acute bronchitis, Wheezing Discharge - Sign-Out/Discharge Documenting (check all that apply): Patient Departure - d/c home All imaging exams completed and their final reports reviewed: Yes - Discharge Plan Condition: Stable Disposition: HOME Prescriptions: Albuterol HFA INHALER* [Ventolin HFA Inhaler*] 1 - 2 puff INH Q6H PRN #1 mdi PRN Reason: Wheezing Benzonatate CAP* [Tessalon 100 MG CAP*] 100 mg PO TID PRN #21 cap PRN Reason: Cough DOXYcycline CAP(*) [DOXYcycline 100MG CAP(*)] 100 mg PO BID #19 cap predniSONE TAB* [Deltasone 20 MG TAB*] 20 mg PO DAILY #8 tab Patient Education Materials: Acute Bronchitis (ED), COPD (Chronic Obstructive Pulmonary Disease) (ED) Referrals: Dieudonne Still DO [Primary Care Provider] - 3 Days Additional Instructions: 1- Take Prednisone PO taper dose as directed starting tomorrow. First loading dose given today. Take Doxycycline PO as directed below. first dose given today. 2-Take tessalon tabs PO as directed below and use albuterol inhaler w/ the aerochamber to alleviate wheezing as directed . Increase fluid intake, rest and eat well. 3- If symptoms do not improve or worsen or your develop SOB with fever and severe wheezing please go immediately to the ER further evaluation and treatment. 4- If not improvement of symptoms, please f/u with your PCP in 3 days for further management on you may be developing COPD - Billing Disposition and Condition Condition: STABLE Disposition: Home
[2019-01-27] MEDS ORDERED: predniSONE TAB* 20 MG PO ONE (17:43)
[2019-01-27] MEDS ORDERED: Albuterol/Ipratropium NEB.SOL* Albuterol 2.5 MG/Ipratropium 0.5 MG 3 ML INH ONE (17:43)
[2019-01-27] MEDS ORDERED: DOXYcycline CAP(*) 100 MG PO ONE (18:02)
[2019-01-27] MEDS ORDERED: Albuterol HFA INHALER* 8 gm MDI INH ONE (18:03)
== END 2019-01-27 18:25 | disposition home or self-care (01) ==
LOC: UCCORT 17:03
DX: J20.9 Acute bronchitis, unspecified (principal); R06.2 Wheezing; I10 Essential (primary) hypertension; E78.5 Hyperlipidemia, unspecified; Z79.899 Other long term (current) drug therapy; Z79.82 Long term (current) use of aspirin; Z88.8 Allergy status to other drugs, medicaments and biological substances
CPT/HCPCS: 71046; 99203; A9270-GY; G0463; J7512